=== PATIENT | male | born 1940 | race Caucasian/White ===

== ENCOUNTER 2020-04-22 05:28 | Inpatient (IN) | payer MEDICARE, OTHER, SELFPAY ==
[2020-04-22] VITALS (28 sets, daily range): BP systolic 86–165; BP diastolic 41–73; PULSE 73–107; RESP 15–96; TEMP 36.2–37.1; O2SAT 18–100; BMI 43.9
--- NOTE | 2020-04-22 | ECHO_ITS ---
Patient Info Name: Frederick Cassidy Age: 79 years : 1940 Gender: Male Ht: 70 in Wt: 330 lbs BSA: 2.80 m2 HR: 82 bpm BP: 103 / 68 mmHg Heart Rhythm: Atrial Fibrillation Technical Quality: Good Exam Date: 04/22/2020 10:18 AM Exam Location: [facility] Patient Status: Inpatient Admit Date: 04/22/2020 Staff Ordering Physician: Hermes Mc MD African Studies Professor: Antonette Barbour RDCS Attending Provider: Calvin Weaver MD Referring Physician: Jesusita BLANCA; Exam Type: CA echo doppler color flow Study Info Indications R60.9 - Edema, unspecified I48.0 - Paroxysmal atrial fibrillation I48.1 - Persistent atrial fibrillation Complete two-dimensional, color flow and Doppler transthoracic echocardiogram is performed. Summary 1. Complete two-dimensional, color flow and Doppler transthoracic echocardiogram is performed. 2. Left ventricular chamber dimension is normal. 3. Left ventricular systolic function is normal, estimated at 60-65%. 4. The left ventricular diastolic function is normal. 5. E/e' 9 is minimally elevated. 6. Left atrial chamber dimension is moderately enlarged. 7. Right atrial chamber dimension is moderately enlarged. 8. There is mild to moderate mitral valve regurgitation. 9. There is mild to moderate tricuspid valve regurgitation. 10. Moderate pulmonary hypertension, estimated pulmonary arterial systolic pressure is 50 mmHg. 11. Dilated inferior vena cava with <50% collapse upon inspiration consistent with significantly elevated right atrial pressure, 15 mmHg. Left Ventricle E/e' 9 is minimally elevated. Left ventricular chamber dimension is normal. Left ventricular systolic function is normal, estimated at 60-65%. The left ventricular diastolic function is normal. Right Ventricle Right ventricular chamber dimension is normal. Right ventricular systolic function is normal. Left Atria Left atrial chamber dimension is moderately enlarged. Right Atria Right atrial chamber dimension is moderately enlarged. Aortic Valve The aortic valve is trileaflet. There is no aortic valve stenosis. There is no aortic valve regurgitation. Pulmonic Valve There is no pulmonic regurgitation. Mitral Valve There is no mitral valve stenosis. There is mild to moderate mitral valve regurgitation. Tricuspid Valve There is mild to moderate tricuspid valve regurgitation. Moderate pulmonary hypertension, estimated pulmonary arterial systolic pressure is 50 mmHg. Pericardium/Pleural There is no pericardial effusion. Inferior Vena Cava Dilated inferior vena cava with <50% collapse upon inspiration consistent with significantly elevated right atrial pressure, 15 mmHg. Aorta The aortic root size at the sinus of Valsalva is normal. Left Ventricular Outflow Tract Name Value Normal LVOT 2D LVOT Diameter 2.0 cm LVOT Doppler LVOT Peak Gradient 6 mmHg LVOT Mean Gradient 4 mmHg LVOT VTI 33 cm LVOT VTI/AV VTI Ratio 1.0 LVOT Stroke Volume 10
--- NOTE | ~2020-04-22 | XR_ITS ---
EXAMINATION: XR chest 1V portable EXAM DATE: 04/22/2020 20:07 INDICATION: Severe anemia. TECHNIQUE: Portable AP frontal chest x-ray was obtained. Comparison is made to prior examination from 12/26/2019. FINDINGS: There is cardiomegaly and pulmonary vascular congestion. No confluent consolidation, pneumo thorax or pleural effusion suspected. There are mild bony degenerative changes. IMPRESSION: Cardiomegaly, pulmonary vascular congestion. Reviewed, dictated and finalized at location A. [employer] RELATIONS ADVISOR
--- NOTE | ~2020-04-22 | CT_ITS ---
EXAMINATION: CT LE LT wo con DATE: 04/23/2020 09:51 INDICATION: Wound and edema at the left lower limb. TECHNIQUE: Computed tomography (CT) of the left lower limb was performed without intravenous contrast . Automated exposure control and iterative reconstruction technique were employed. The dose-length pr oduct was 1404 mGy-cm. COMPARISON: None FINDINGS: Bone alignment is normal. Severe polyarticular osteoarthritis at the left knee with medial compartmen t predominance and at multiple joints in the midfoot. Moderate-sized left knee joint effusion. No adonis dent osteolysis to suggest osteomyelitis. Scattered enthesophytes and enthesopathic calcifications at the visualized portions of the bilateral feet. There is diffuse subcutaneous edema with stranding throughout the left lower leg. There is marked sof t tissue swelling at the medial left thigh where there is a more confluent region of fluid density alexandre rrounding numerous linear and branching calcifications consistent with multiple vascular callus cases in the subcutaneous tissues likely related to venous stasis. There is overlying skin thickening. No evident localized mass effect on the architecture the subcutaneous tissues to suggest an abscess alth ough sensitivity is decreased by the absence of intravenous contrast. No evident soft tissue gas to r aise concern for necrotizing fasciitis. There extensive atherosclerotic calcifications which are relatively mild along the left common femora l and superficial femoral arteries. Additional atherosclerotic calcifications along the vessels of th e right calf which may be more hemodynamically significant however quantitative determination of degr ee of patency/stenosis is limited by the absence of intravenous contrast in the small size of the ves sels. There is additional subcutaneous edema and soft tissue swelling over the medial side of the lef t ankle the dorsolateral aspect of the hindfoot. Scrotal edema and small bilateral hydroceles. IMPRESSION: 1. Prominent asymmetric soft tissue swelling at the medial aspect of the left thigh with large conflu ent region of subcutaneous edema and/or phlegmonous change which may be related to chronic venous sta sis given the numerous calcified vessels within the region of soft tissue swelling. No evident soft t issue gas to suggest necrotizing fasciitis which is a clinical diagnosis or focal region more suspici ous for abscess. 2. Extensive atherosclerotic ossifications throughout the left lower limb which could be hemodynamica lly significant at the left calf however assessment is limited by lack of intravenous contrast. 3. Severe polyarticular osteoarthritis at the left knee and midfoot. 4. Nonspecific moderate sized left knee joint effusion. Reviewed, dictated and finalized at location A. [employer]IATE IMPRESSION: 1. Prominent asymmetric soft tissue swelling at the medial aspect of the left t high with large confluent region of subcutaneous edema and/or phlegmonous josé e which may be related to chronic venous stasis given the numerous calcified ve ssels within the region of soft tissue swelling. No evident soft tissue gas to suggest necrotizing fasciitis which is a clinical diagnosis or focal region mor e suspicious for abscess. 2. Extensive atherosclerotic ossifications throughout the left lower limb which could be hemodynamically significant at the left calf however assessment is li mited by lack of intravenous contrast. 3. Severe polyarticular osteoarthritis at the left knee and midfoot. 4. Nonspecific moderate sized left knee joint effusion.
--- NOTE | ~2020-04-22 | CT_ITS ---
EXAMINATION: CT abdomen pelvis wo con DATE: 04/23/2020 09:51 INDICATION: Crohn's and edema. TECHNIQUE: Computed tomography (CT) of the abdomen and pelvis was performed without intravenous contr ast. Automated exposure control and iterative reconstruction technique were employed. The dose-length product was 1534.93 mGy-cm. COMPARISON: 12/21/2009 FINDINGS: Small bilateral pleural effusions with dependent passive atelectasis in the bilateral lower lobes. Mi ld pulmonary edema at the lung bases. Cardiomegaly. Coronary artery disease with likely coronary bart ry stenting. No pericardial effusion. Multiple small calcified gallstones layering in the dependent a spect of the gallbladder with no evident gallbladder wall thickening or pericholecystic inflammatory change to suggest acute cholecystitis. Liver, spleen, pancreas and bilateral adrenal glands are sahil l. Moderate bilateral perinephric stranding. There are couple low-attenuation left renal cysts the la rgest measuring 12 mm as well as a 7 mm proteinaceous/hemorrhagic left renal cyst. No urolithiasis or hydronephrosis. There is mild colonic diverticulosis with a sigmoid predominance. There is no adjac ent inflammatory change to suggest diverticulitis. Normal small bowel and appendix. There is calcifie d atherosclerosis of the aorta and many of the other arteries. Small amount of ascites in the abdomen and pelvis. No loculated abscess or free intraperitoneal gas. Urrutia catheter in the decompressed miguel dder. No pathologically enlarged abdominal or pelvic lymphadenopathy. Scattered body wall edema. Sev ere lumbar spondylosis. IMPRESSION: 1. Cholelithiasis. 2. Anasarca with mild pulmonary edema, small bilateral pleural effusions, small amount of ascites and retroperitoneal and body wall edema at the abdomen and pelvis. 3. Cardiomegaly. Reviewed, dictated and finalized at location A. LOADER IMPRESSION: 1. Cholelithiasis. 2. Anasarca with mild pulmonary edema, small bilateral pleural effusions, small amount of ascites and retroperitoneal and body wall edema at the abdomen and p chris. 3. Cardiomegaly.
--- NOTE | 2020-04-22 06:11 | ED.GENADULT ---
HPI - General Adult General Chief complaint: Extremity Injury, Lower Stated complaint: Bleeding Ulcer Time Seen by Provider: 04/22/20 05:30 History of Present Illness HPI narrative: Patient is a 79-year-old male who presents to the ER with a bleeding leg mass. Mass is located to the posterior thigh of the left lower extremity. It is essentially equivalent in size to the thigh. Patient reports it is due to venous insufficiency/poor blood return. Reports he got up to use the restroom this morning and then noticed she left a trail of blood after he sat down on the toilet. It continued to bleed and he called EMS. Upon arrival bleeding is controlled. The patient is not on blood thinners. He denies any known trauma. No redness or additional swelling outside of what is normal for the chronic mass. Has not seen wound care. There is a sizable ulcer to the posterior aspect of the leg of this mass that has multiple deep areas that are impairing color from white to black but no eschar. At the inferior aspect of the ulcer there are 2 areas where it appears the ulcer may have invaded a vein and caused bleeding. There is clot present and no active bleeding. Related Data Allergies Allergy/AdvReac Type Severity Reaction Status Date / Time No Known Allergies Allergy Mild Verified 12/21/09 15:12 Review of Systems Review of Systems: All systems reviewed & are unremarkable except as noted in HPI and below Constitutional: Constitutional: Denies chills, Denies fever(s) and Denies weakness Integumentary/Breasts: Skin/Breast: Denies pruritus and Denies erythema Comments: Chronic left lower extremity ulcer with bleeding. Neurologic: Denies focal weakness and Denies numbness PMFSH Past Medical History Medical History (Updated 04/22/20 @ 06:48 by Margarito Pichardo MD) Atrial fibrillation Diabetes Hypertension Skin cancer Venous stasis Surgical History Surgical History (Updated 04/22/20 @ 06:19 by Margarito Pichardo MD) H/O hernia repair Social History Social History (Updated 04/22/20 @ 06:19 by Margarito Pichardo MD) Smoking status: Never smoker Exam Narrative: Exam Narrative: GENERAL: Chronically ill-appearing, morbidly obese, and in no acute distress. HEAD: Normocephalic, atraumatic. ENT: Mucous membranes moist. CHEST: Clear to auscultation. No respiratory distress. HEART: Irregular regular rate and rhythm. Normal peripheral pulses. ABDOMEN: Soft, nontender, nondistended. Edema of the lower abdomen. EXTREMITIES: Chronic venous stasis of bilateral lower extremities. Large mass posterior left thigh with a central ulceration that is nondraining. Unstageable at this time. Inferior aspect has 2 areas with stigmata of bleeding but no active hemorrhage. Normal strength range of motion of the upper extremities. Limited range of motion due to mass left lower extremity. Pulses dopplered in bilateral lower extremities. SKIN: Warm, dry, no rash. Slight erythema surrounding the ulceration. NEURO: Alert and oriented x3. PSYCH: Normal mood and affect. Course Course Emergency Course: Admit to hospitalist service. Blood ordered for transfusion. Patient keenly alert and oriented but blood sugar low so he was given IV D50. Will send to [facility] telemetry. General surgery consulted for possible debridement. Vital Signs Vital signs: Vital Signs Temperature 97.5 F L 04/22/20 05:28 Pulse Rate 107 H 04/22/20 05:28 Respiratory Rate 16 04/22/20 05:28 Blood Pressure 119/55 L 04/22/20 05:28 Pulse Oximetry 100 04/22/20 05:28 Temperature 97.5 F L 04/22/20 05:28 Pulse Rate 92 04/22/20 06:42 Respiratory Rate 22 H 04/22/20 06:42 Blood Pressure 165/73 H 04/22/20 06:42 Pulse Oximetry 100 04/22/20 06:42 Medical Decision Making Vital Signs Vital Signs: Vital Signs Temperature 97.5 F L 04/22/20 05:28 Pulse Rate 107 H 04/22/20 05:28 Respiratory Rate 16 04/22/20 05:28 Blood Pressure 119/55 L 04/22/20
[2020-04-22 06:16] LABS: Basophils Percent Auto 0.2 % (0.2-1.2); Eosinophils Absolute Auto 0.3 K/mm3 (0-0.3); Eosinophils Percent Auto 1.4 % (0-4.4); Immature Granulocyte Absolute 0.31 K/mm3 (0.00-0.031); Immature Granulocyte Percent A 1.8 % (0-0.5); Lymphocytes Absolute Auto 1.65 K/mm3 (0.9-3.2); Lymphocytes Percent Auto 9.4 % (18.3-44.2); Mean Corpuscular HGB Conc 30.9 g/dl (32-36); Mean Corpuscular Hemoglobin 22.9 pg (26-34); Mean Corpuscular Volume 74.3 fl (80-100); Mean Platelet Volume 8.4 fl (7.4-10.4); Monocytes Absolute Auto 1.4 K/mm3 (0.1-0.6); Monocytes Percent Auto 8.2 % (2.6-8.5); Neutrophils Absolute Auto 13.9 K/mm3 (1.3-6.7); Platelet Count Result 441 k/mm3 (150-375); Red Blood Count 2.53 M/mm3 (4.6-6.20); Red Cell Distribution Width 18.1 % (11.5-14.5); White Blood Count 17.6 K/mm3 (4.5-10.0)
[2020-04-22 06:17] LABS: Hematocrit 18.8 % (42.0-52.0); Hemoglobin 5.8 g/dL (14.0-18.0)
[2020-04-22 06:33] LABS: Anion Gap 6 mmol/L (8-16); Blood Urea Nitrogen 43 mg/dL (9-20); Calcium 8.4 mg/dL (8.4-10.2); Carbon Dioxide 24 mmol/L (22-30); Chloride 107 mmol/L (98-107); Estimated CRCL calculation 62 ml/min; Estimated Glomerular Filt Rate 53; Glucose 58 mg/dL (75-110); Potassium 4.5 mmol/L (3.4-5.0); Sodium 137 mmol/L (137-145)
[2020-04-22 06:38] LABS: Glucose Point of Care 62 (65-105)
[2020-04-22] MEDS: DEXTROSE 50% 25 GM/50 ML SYRINGE IV PUSH (06:42)
[2020-04-22] MEDS: MORPHINE SULFATE (*CRX) 4 MG/ML INJ IV PUSH ×2 (07:10→15:53)
--- NOTE | 2020-04-22 07:10 | PC.NURSE ---
Report received [facility]. Preparing to admit. Pt resting on stretcher, states his pain is getting better to his right hip. Glucose 98mg/dl. Note dried blood to feet, emanuel wrap intact to left calf. Note large, reddened, warm, excoriated area to left inner thigh; pt reports bleeding wound to left posterior thigh. Pt rolled with assist, note large area (approx 6x7 in) of hardened, darkened skin to posterior thigh just above popliteal space. Appears to be draining clear liquid; however note emanuel wrap near the area that the patient states was on his thigh previously, and this emanuel has dried blood on it as well. NS guaze placed to area. Pt tolerated procedure well.
--- NOTE | 2020-04-22 07:50 | ADMGEN ---
This patient, Frederick Cassidy, was admitted to Medical Room 254-01. Patient/family oriented to hospital policies and general routines including ID bracelet, bed and alarms, visiting hours, pain management, procedures, bathroom and other care routines, personal items, smoking policy, room service/diet, and visiting hours. Placed on telemetry per MD orders. Information on how to activate the Rapid Response Team has been discussed. Patient/Family are encouraged to report perceived risks to care and to ask questions if they do not understand what they are told or what they should do.
--- NOTE | 2020-04-22 08:14 | PM.IMHP ---
H&P: HPI History of Present Illness Date/Time: 04/22/20 08:14 Chief Complaint: Bleeding leg ulcer. Narrative: Frederick Cassidy is a 79 year old male with PMHx significant for Morbid obesity, venous stasis, T2DM, HTN, BPH, former smoker. Patient presented to ED due to bleeding form his leg, patient has chronic wound ulcer on his LLE above the ankle, and mass on the L thigh. Patient presented to ED due to the bleeding not stopping. Patient denies any weight loss, any blood per rectum, hematemesis, hematochezia, melena. No fevers, no rigors, no chills, no n/v/abdominal pain, no sob, no cough, no sputum production, no pnd, no orthopnea. Patient was found to have a hemoglobin of 5 on preliminary work up and a mass on his thigh which he states it has been there for years . Patient does his own wound care. Review of Systems Review of Systems: Narrative: Unable to get a thorough review of systems as patient is hard of hearing and a poor historian. Constitutional: Comments: No fevers, no chills, no rigors, no weight loss. Cardiovascular: Comments: no chest pain. Respiratory: Comments: no sob, no cough, no sputum production. Gastrointestinal: Comments: no n/v/abdominal pain. Musculoskeletal: Comments: Bleeding ulcer LLE, mass L thigh. Integumentary/Breasts: Comments: B/L LE skin changes Neurologic: Comments: no focal weakness. [facility] Past Medical History Medical History Atrial fibrillation Diabetes Hypertension Skin cancer Venous stasis Surgical History Surgical History H/O hernia repair Social History Social History Smoking packs per day: 1.5 Smoking cigarettes per day: 30.0 Smoking status: Former smoker Tobacco type: cigarettes Alcohol intake: former Substance use: never Gender identity (if verbalized by the patient): Male Sexual Orientation (if Verbalized by the Patient): Straight or Heterosexual Spiritual care concerns: No Meds Home Medications and Allergies Home Medications Medication Instructions Recorded Confirmed Type aspirin 81 mg PO HS 04/22/20 04/22/20 History doxazosin 4 mg PO DAILY 04/22/20 04/22/20 History finasteride 5 mg PO DAILY 04/22/20 04/22/20 History furosemide 40 mg PO DAILY 04/22/20 04/22/20 History insulin NPH isoph U-100 human 25 unit SUBCUT Q12H 04/22/20 04/22/20 History [Novolin N Flexpen] insulin regular human [Novolin R 25 unit SUBCUT DAILY 04/22/20 04/22/20 History Flexpen] lisinopril-hydrochlorothiazide 1 tablet PO DAILY 04/22/20 04/22/20 History metformin 2,000 mg PO HS 04/22/20 04/22/20 History multivitamin [Daily Multivitamin] 1 tablet PO DAILY 04/22/20 04/22/20 History potassium chloride 10 meq PO DAILY 04/22/20 04/22/20 History vitamin B complex [Super B Complex] 1 tablet PO DAILY 04/22/20 04/22/20 History Allergies Allergy/AdvReac Type Severity Reaction Status Date / Time No Known Allergies Allergy Mild Verified 04/22/20 12:26 Vital Signs Vital Signs - 24 hr 04/22/20 05:28 04/22/20 06:32 04/22/20 06:42 Temperature 97.5 F L Pulse Rate 107 H 96 92 Respiratory Rate 16 15 22 H Blood Pressure 119/55 L 165/73 H 165/73 H Pulse Oximetry 100 98 100 04/22/20 06:45 04/22/20 07:00 04/22/20 07:01 Temperature Pulse Rate 92 90 90 Respiratory Rate 18 16 17 Blood Pressure 103/68 Pulse Oximetry 99 100 99 04/22/20 07:15 04/22/20 07:30 Temperature Pulse Rate 83 91 Respiratory Rate 16 19 Blood Pressure Pulse Oximetry 100 99 Exam Narrative: Exam Narrative: Chronically ill looking in bed no acute distress. Const: General: comfortable, no acute distress, alert and awake Nutritional Appearance: other (Morbid obesity.) Orientation/consciousness: patient oriented x3 Limitations: physical limitations HENMT: Head: normal to inspection and normocephalic Ears: other (Conteh
[2020-04-22 08:18] LABS: Glucose Point of Care 98 (65-105)
--- NOTE | 2020-04-22 09:55 | PM.CNGS ---
Assessment and Plan Assessment and plan (1) Leg wound, left: Code(s): S81.802A - Unspecified open wound, left lower leg, initial encounter Status: Acute Assessment and Plan: will get CT of LLE for further eval of wound/mass, no further bleeding noted since admit, will get wound care to see, need compression dressing (2) Cellulitis: Code(s): L03.90 - Cellulitis, unspecified Status: Acute Assessment and Plan: cont abx, await CT for further eval (3) Anemia: Code(s): D64.9 - Anemia, unspecified Status: Acute Assessment and Plan: transfuse PRBC and recheck H/H, no active bleeding noted History of Present Illness Consult details Consult date: 04/22/20 Reason for consult: wound care Requesting physician: Margarito Pichardo MD Narrative: Pt is a 79 y/o M c multiple med issues presenting c bleeding ulcer on L posterior thigh. Pt reports he had had wound/mass of his L thigh for years although he has had no specific treatment. Pt reports he was told this was all due to venous stasis. Pt reports last night he noted significant bleeding from this wound. Pt reports some mild oozing in the past but nothing ever this significant. Pt called EMS and was brought to ED. Upon arrival, it was noted that the bleeding was controlled. Review of Systems Constitutional: Constitutional: Denies anorexia, Reports body ache(s), Denies chills, Reports fatigue, Denies fever(s), Denies headache(s), Reports lethargy, Denies malaise, Denies poor appetite, Reports weakness, Reports weight gain and Denies weight loss Eyes: Eyes: Reports no additional eye complaints ENT: Reports system reviewed and no additional complaints, except as documented Cardiovascular: Cardiovascular: Denies chest pain, Reports pedal edema, Reports edema, Reports leg ulcers, Reports leg edema, Reports dyspnea, Reports dyspnea on exertion and Reports orthopnea Respiratory: Respiratory: Reports dyspnea and Reports dyspnea on exertion Gastrointestinal: Gastrointestinal: Reports no additional gastrointestinal complaints Genitourinary: Genitourinary: Reports no additional male genitourinary complaints Musculoskeletal: Musculoskeletal: Reports myalgias, Reports muscle cramps, Reports muscle weakness, Reports numbness and Reports stiffness Integumentary/Breasts: Skin/Breast: Reports bleeding lesions, Reports swelling, Reports change in pigmentation, Reports non-healing lesions, Reports erythema, Reports skin swelling, Reports skin ulcer, Reports sores and Reports wounds Neurologic: Reports system reviewed and no additional complaints, except as documented Psychiatric: Psychiatric: Reports no additional psychiatric complaints Endocrine: Endocrine: Reports no additional endocrine complaints Hematologic/Lymphatic: Hematologic/Lymphatic: Reports no additional hematologic/lymphatic complaints Allergic/Immunologic: Allergic/Immunologic: Reports no additional allergic/immunologic complaints PMFSH Past Medical History Medical History Atrial fibrillation Diabetes Hypertension Skin cancer Venous stasis Surgical History Surgical History H/O hernia repair Social History Social History Smoking status: Never smoker Comments FH - pt denies any known FH of PVD, skin cancers Meds Home Medications and Allergies Home Medications Medication Instructions Recorded Confirmed Type aspirin 81 mg PO HS 04/22/20 04/22/20 History doxazosin 4 mg PO DAILY 04/22/20 04/22/20 History finasteride 5 mg PO DAILY 04/22/20 04/22/20 History furosemide 40 mg PO DAILY 04/22/20 04/22/20 History insulin NPH isoph U-100 human 25 unit SUBCUT Q12H 04/22/20 04/22/20 History [Novolin N Flexpen] insulin regular human [Novolin R 25 unit SUBCUT DAILY 04/22/20 04/22/20 History Flexpen] l
[2020-04-22 11:02] LABS: Glucose Point of Care 92 (65-105)
[2020-04-22] MEDS: HYDROcodone/acetaminophen (*CRX) 5-325 MG TABLET 1 TAB PO (12:57)
--- NOTE | 2020-04-22 16:16 | WPDINFPN2 ---
Progress Note: A&P Assessment and Plan (1) Cellulitis: Code(s): L03.90 - Cellulitis, unspecified Status: Acute Assessment and Plan: Cellulitis posterior L thigh REC [facility] #1, CT ordered Subjective Date/time seen: 04/22/20 16:16 Objective Data Vital Signs Vital Signs: Vital Signs - 24 hr 04/22/20 05:28 04/22/20 06:32 04/22/20 06:42 Temperature 36.4 C L Pulse Rate 107 H 96 92 Respiratory Rate 16 15 22 H Blood Pressure 119/55 L 165/73 H 165/73 H Pulse Oximetry 100 98 100 04/22/20 06:45 04/22/20 07:00 04/22/20 07:01 Temperature Pulse Rate 92 90 90 Respiratory Rate 18 16 17 Blood Pressure 103/68 Pulse Oximetry 99 100 99 04/22/20 07:15 04/22/20 07:30 04/22/20 08:00 Temperature 36.2 C L Pulse Rate 83 91 77 Respiratory Rate 16 19 18 Blood Pressure 98/54 L Pulse Oximetry 100 99 98 04/22/20 09:58 04/22/20 10:15 04/22/20 11:15 Temperature 36.7 C 36.7 C 36.4 C Pulse Rate 91 90 82 Respiratory Rate 18 18 18 Blood Pressure 99/53 L 103/48 L 88/50 L Pulse Oximetry 100 98 99 04/22/20 12:00 04/22/20 12:15 04/22/20 13:20 Temperature 36.2 C L 36.8 C 36.7 C Pulse Rate 77 85 73 Respiratory Rate 16 18 18 Blood Pressure 101/60 93/46 L 107/51 L Pulse Oximetry 98 98 95 04/22/20 14:16 04/22/20 14:32 Temperature 36.8 C 36.8 C Pulse Rate 92 80 Respiratory Rate 18 18 Blood Pressure 92/42 L 95/43 L Pulse Oximetry 99 98 Intake/Output Intake/Output: Intake & Output 04/19/20 04/20/20 04/21/20 04/22/20 23:59 23:59 23:59 23:59 Intake Total 1760 Balance 1760 Meds/Results Medications: Active Medications Generic Name Dose Route Start Last Admin Trade Name Freq PRN Reason Stop Dose Admin Acetaminophen 650 mg 01/08/21 06:44 Acetaminophen 325 Mg Tablet PO Q4H PRN Mild Pain (1-3) or Fever Hydrocodone Bitart/Acetaminophen 1 tab 04/22/20 06:44 04/22/20 12:57 Hydrocodone/Acetaminophen (*Crx) 5-325 Mg Tablet PO 1 tab Q4H PRN Administration Pain Rated 4-6 Aspirin 81 mg 04/22/20 21:00 Aspirin 81 Mg Enteric Tablet PO 05/22/20 21:01 HS [facility] Doxazosin Mesylate 4 mg 04/23/20 09:00 Doxazosin Mesylate 4 Mg Tablet PO DAILY [facility] Finasteride 5 mg 04/23/20 09:00 Finasteride 5 Mg Tablet PO DAILY [facility] Furosemide 20 mg 04/22/20 17:00 Furosemide Inj 40 Mg/4 Ml Vial IV PUSH Q4HR [facility] Piperacillin/Tazobactam/Dextrose 3.375 gm in 50 mls @ 100 mls/hr 04/22/20 16:15 Zosyn 3.375 Gm/D5w 50ml Pm IVPB Q6H [facility] Insulin Human NPH 25 units 04/22/20 21:00 Insulin Human Nph (*Bkc) 100 Units/Ml SUB-Q Q12HR [facility] Insulin Human Regular 25 units 04/23/20 09:00 Insulin Human Regular (*Bkc) 100 Units/Ml SUB-Q 05/23/20 09:01 DAILY [facility] Miconazole Nitrate 1 applic 04/22/20 09:00 Miconazole 2% Antifungal Ointment 56 Gm TOPICAL Q12HR [facility] Morphine Sulfate 4 mg 04/22/20 06:44 04/22/20 15:53 Morphine Sulfate (*Crx) 4 Mg/Ml Inj IV PUSH 4 mg Q2H PRN Administration Pain Rated 7-10 Ondansetron HCl 4 mg 04/22/20 06:44 Ondansetron Inj 4 Mg/2 Ml Vial IV PUSH Q4H PRN Nausea Labs Labs: Laboratory Results - last 24 hr 04/22/20 04/22/20 04/22/20 06:06 06:06 06:35 WBC 17.6 H RBC 2.53 L Hgb 5.8 L* Hct 18.8 L* MCV 74.3 L MCH 22.9 L MCHC 30.9 L RDW 18.1 H Plt Count 441 H MPV 8.4 Immature Gran % (Auto) 1.8 H Neut % (Auto) 79.0 H Lymph % (Auto) 9.4 L Nolan % (Auto) 8.2 Eos % (Auto) 1.4 Baso % (Auto) 0.2 Lymph # (Auto) 1.65 Nolan # (Auto) 1.4 H Eos # (Auto) 0.3 Baso # (Auto) 0.0 Abs Immat Gran (auto) 0.31 H Absolute Neuts (auto) 13.9 H Absolute Nucleated RBC 0.0 Nucleated RBC % 0.0 Sodium 137 Potassium 4.5 Chloride 107 Carbon Dioxide 24 Anion Gap 6 L BUN 43 H Creatinine 1.30 Estim Creat Clear Calc 62 Estimated GFR 53 L Glucose 58 L* POC Cap
[2020-04-22 16:27] LABS: Glucose Point of Care 128 (65-105)
[2020-04-22] MEDS: FUROSEMIDE INJ 40 MG/4 ML VIAL 20 MG IV PUSH (17:44)
[2020-04-22 18:59] LABS: Hematocrit 19.5 % (42.0-52.0)
[2020-04-22 19:30] LABS: Hemoglobin 5.9 g/dL (14.0-18.0)
--- NOTE | 2020-04-22 19:34 | PC.NURSE ---
Addendum entered by Denise Barros RN 04/22/20 19:34: time of call was 1854 Original Note: call to lab to repeat HH due to result and that pt has received 2 units of blood
[2020-04-22] MEDS: SODIUM CHLORIDE 0.9% IV 250 ML 30 ML IV CONT (20:29)
[2020-04-22 20:45] LABS: Glucose Point of Care 137 (65-105)
--- NOTE | 2020-04-22 21:12 | CONS_ITS ---
DATE OF CONSULTATION: 04/22/2020 REASON FOR CONSULTATION: Cellulitis, left thigh. HISTORY OF PRESENT ILLNESS: A 79-year-old male, who is a fair historian. He reports about 15 years of ulcers over the left distal leg as well as left posterior thigh. He customarily sees Dr. Quiroz, who told him this was ultimately due to venous stasis disease. The patient also saw a plastic surgeon approximately 2 years ago, that record not on the computer system, and attempted to obtain some type of treatment, but was denied for cosmetic reasons. The patient has been on no recent antibiotics. No immunosuppressants. He gets around the house very little, but when he does so, he uses a cane. He spends much of his time in bed or in a chair. He has had no known trauma. He presented to the emergency room this morning when bleeding was noted from the posterior thigh wound, which was unusual. On arrival here, he had a dried clot on the inferior aspect of his left thigh. No active bleeding. No known fever, chills, sweats, leg trauma. No previous leg operations and there is no arterial insufficiency that we are aware. ALLERGIES: NONE KNOWN. HABITS: No tobacco. No alcohol. PRESENT MEDICATIONS: Home medication list reviewed. PAST MEDICAL HISTORY: Hernia repair, hypertension, diabetes, and AF. REVIEW OF SYSTEMS: Hypoglycemia, edema, and generalized weakness. 14-point review otherwise negative. FAMILY HISTORY: Not pertinent to his present illness. SOCIAL HISTORY: He lives locally. He is single and retired. PHYSICAL EXAMINATION: GENERAL: This is an elderly male, who appears actual age. No acute distress. VITAL SIGNS: Afebrile, pulse 80, respirations 18, and saturation 98% room air. He is presently getting packed red blood cell transfusion. SKIN: No generalized rashes. EENT: Conjunctivae clear. The oropharynx, oral mucosa normal. Teeth in fair repair. Multiple missing teeth. NECK: No masses, thyromegaly, or meningismus. LUNGS: Clear to auscultation. CARDIAC: Soft S1, S2. Regular rate and rhythm. No murmurs. ABDOMEN: Massively obese. No tenderness is apparent. No masses are apparent. EXTREMITIES: He has very large thighs and comparatively smaller calves. He has a venous stasis ulcer approximately 2 cm over the distal left kumar. It is a 6-7 cm partial-thickness ulcer on posterior left thigh with some eschar and some micro pustules, mild surrounding erythema, particularly medially. There is no crepitus. LABORATORY DATA: Blood cultures had been drawn some 8 hours ago. White count 17.6, hemoglobin 5.8, hematocrit 18.8, MCV 74.3, and platelets are 441. Differential is unremarkable. Chemistry panel normal except for glucose of 50 in the field, now 98. His BUN 43, creatinine 1.3. No prior CBCs are available. RADIOLOGY DATA: Echocardiogram apparently done for edema. Multiple abnormalities, no suspicion for infection. ASSESSMENT: 1. Left thigh ulcer with cellulitis without known trauma, but could be related to a decubitus change. This could be polymicrobial, skin source suspected, less likely infection from a distant source with hematogenous spread. 2. Venous stasis ulcer, distal left leg. No infection. He does have typical hyperpigmentation surrounding the kumar bilaterally. 3. Massive obesity. 4. Diabetes mellitus, appears to be well controlled. 5. Marked anemia of uncertain cause. RECOMMENDATIONS: 1. Evaluation of the anemia in progress. 2. Stop imipenem and vancomycin. Begin piperacillin monotherapy. 3. CT has already been set up. We will follow up on those results and advise. 4. Also follow up on blood cultures. Thank you very much for asking me to see him.
[2020-04-22] MEDS: ACETAMINOPHEN 325 MG TABLET 650 MG PO (23:39)
[2020-04-23] VITALS (21 sets, daily range): BP systolic 87–130; BP diastolic 45–79; PULSE 20–83; RESP 18–99; TEMP 36.3–37.7; O2SAT 81–100
[2020-04-23 05:15] LABS: Hematocrit 21.7 % (42.0-52.0)
[2020-04-23 05:18] LABS: Hemoglobin 6.9 g/dL (14.0-18.0)
[2020-04-23] MEDS: SODIUM CHLORIDE 0.9% IV 250 ML 30 ML IV CONT (06:25)
[2020-04-23 08:05] LABS: Glucose Point of Care 100 (65-105)
[2020-04-23] MEDS: FINASTERIDE 5 MG TABLET PO (10:03)
[2020-04-23] MEDS: INSULIN HUMAN NPH (*BKC) 100 UNITS/ML 25 UNITS SUB-Q (10:18)
--- NOTE | 2020-04-23 11:00 | PM.PNGS ---
Progress Note: A&P Assessment and Plan (1) Leg wound, left: Code(s): S81.802A - Unspecified open wound, left lower leg, initial encounter Status: Acute Assessment and Plan: cont local wound care, elevation/compression, await CT results, abx per ID (2) Cellulitis: Code(s): L03.90 - Cellulitis, unspecified Status: Acute Assessment and Plan: see above (3) Anemia: Code(s): D64.9 - Anemia, unspecified Status: Acute Assessment and Plan: s/p 5 u PRBC, cont serial H/H, not sure source is leg wound given amount of transfused PRBC and slow response, agree c further investigation c CT abd Subjective Subjective Date/Time Seen: 04/23/20 11:00 Pt feels much better, reports no further bleeding from wound Review of Systems Review of Systems: All systems reviewed & are unremarkable except as noted in HPI and below Exam Const: General: cooperative and comfortable Nutritional Appearance: obese Orientation/consciousness: patient oriented x3 Resp: Effort & Inspection: normal respiratory effort Auscultation: clear to auscultation bilaterally Cardio: Jugular venous distension: no JVD Rate: regular rate Rhythm: regular rhythm GI: Inspection: normal to inspection and non-distended GI Palp: Yes Soft to palpation, No Tenderness to palpation present (GI) and No Guarding due to palpation present (GI) Auscultation: normal bowel sounds Skin: Other: bilateral venous stasis ulcers, L thigh mass unchanged, no bleeding Objective Data Vital Signs Vital Signs: Vital Signs - 24 hr 04/22/20 11:15 04/22/20 12:00 04/22/20 12:15 Temperature 36.4 C 36.2 C L 36.8 C Pulse Rate 82 89 85 Respiratory Rate 18 16 18 Blood Pressure 88/50 L 101/60 93/46 L Pulse Oximetry 99 98 98 04/22/20 13:20 04/22/20 14:16 04/22/20 14:32 Temperature 36.7 C 36.8 C 36.8 C Pulse Rate 73 92 80 Respiratory Rate 18 18 18 Blood Pressure 107/51 L 92/42 L 95/43 L Pulse Oximetry 95 99 98 04/22/20 15:32 04/22/20 16:00 04/22/20 16:32 Temperature 36.8 C 36.8 C 36.9 C Pulse Rate 98 83 90 Respiratory Rate 18 18 18 Blood Pressure 90/41 L 90/41 L 98/46 L Pulse Oximetry 98 98 98 04/22/20 17:00 04/22/20 20:00 04/22/20 20:45 Temperature 37.0 C 36.9 C 36.8 C Pulse Rate 88 82 80 Respiratory Rate 18 18 20 Blood Pressure 101/44 L 102/45 L 86/46 L Pulse Oximetry 98 98 97 04/22/20 21:00 04/22/20 22:00 04/22/20 23:00 Temperature 36.8 C 37.1 C 36.8 C Pulse Rate 75 78 82 Respiratory Rate 96 H 20 20 Blood Pressure 90/46 L 105/48 L 97/48 L Pulse Oximetry 18 L 96 97 04/22/20 23:45 04/23/20 00:00 04/23/20 00:35 Temperature 36.9 C 37.4 C Pulse Rate 78 75 82 Respiratory Rate 18 20 Blood Pressure 101/48 L 91/45 L Pulse Oximetry 96 96 04/23/20 00:50 04/23/20 01:50 04/23/20 01:53 Temperature 37.2 C 37.7 C H 37.7 C H Pulse Rate 83 79 79 Respiratory Rate 20 20 20 Blood Pressure 92/45 L 90/48 L 90/48 L Pulse Oximetry 97 96 96 04/23/20 02:50 04/23/20 03:10 04/23/20 04:00 Temperature 37.0 C 37.3 C Pulse Rate 20 L 80 63 Respiratory Rate 99 H 20 Blood Pressure 93/50 L 96/48 L Pulse Oximetry 81 L 99 04/23/20 06:00 04/23/20 06:21 04/23/20 06:35 Temperature 37.1 C 36.5 C 36.7 C Pulse Rate 78 83 63 Respiratory Rate 20 18 20 Blood Pressure 92/50 L 87/51 L 90/49 L Pulse Oximetry 97 98 95 04/23/20 07:35 04/23/20 08:00 04/23/20 08:35 Temperature 36.6 C 36.4 C Pulse Rate 78 77 67 Respiratory Rate 20 20 Blood Pressure 98/46 L 112/46 L Pulse Oximetry 98 96 04/23/20 09:05 Temperature 36.6 C Pulse Rate 80 Respiratory Rate 18 Blood Pressure 102/52 L Pulse Oximetry 98 Intake/Output Intake/Output: Intake & Output 04/20/20 04/21/20 04/22/20 04/23/20 23:59 23:59 23:59 23:59 Intake Total 4390 1350 Output Total 450 1650 Balance 3940 -300 Meds/Results Medications: Active Medications Generic Name Dose Route Start Last Admin Trade Name Freq PRN Reason Stop Dose A
--- NOTE | 2020-04-23 11:41 | WPDGICN ---
Assessment and Plan Assessment and plan (1) Symptomatic anemia: Code(s): D64.9 - Anemia, unspecified Status: Acute Assessment and Plan: he received blood transfusion and still anemic, no overt gib. CT scan was just done to rule out hematoma, etc also noted use of nsaid's we will do egd and colonoscopy this Saturday (2) Cellulitis: Code(s): L03.90 - Cellulitis, unspecified Status: Acute Assessment and Plan: started iv antibiotics, ID on board (3) Leg wound, left: Code(s): S81.802A - Unspecified open wound, left lower leg, initial encounter Status: Acute Assessment and Plan: surgery on board, pending ct scan leg (4) Morbid obesity: Code(s): E66.01 - Morbid (severe) obesity due to excess calories Status: Acute Assessment and Plan: with poor mobility at home (5) Leukocytosis: Code(s): D72.829 - Elevated white blood cell count, unspecified Status: Acute Assessment and Plan: monitor, on antibiotics GI Consult Note Consult date/time: 04/23/20 11:41 Reason for consult: symptomatic anemia HPI: Frederick Cassidy is a 79 year old male with history of morbid obesity, venous stasis, DM, HTN, BPH, former smoker and about 15 years of ulcers over the left distal leg as well as left posterior thigh. He came to ED because of bleeding ulcer on left posterior thigh, at home he hardly gets around and spends lot of time in bed or recliner. He denies any obvious blood per rectum, hematemesis, hematochezia, melena. He is only using baby aspirin but taking nsaid's in daily basis. Never had scopes. Hb was 5.8 wiht microcytosis and required blood transfusion. CT scan leg and abdomen was just done to rule out collection hematoma, abscess, etc. ID started on antibiotics because cellulitis in that area. Review of Systems Constitutional: Constitutional: Denies anorexia, Reports body ache(s), Denies chills, Reports fatigue, Denies fever(s), Denies headache(s), Reports lethargy, Denies malaise, Denies poor appetite, Reports weakness, Reports weight gain and Denies weight loss Eyes: Eyes: Reports no additional eye complaints ENT: Reports system reviewed and no additional complaints, except as documented Cardiovascular: Cardiovascular: Denies chest pain, Reports pedal edema, Reports edema, Reports leg ulcers, Reports leg edema, Reports dyspnea, Reports dyspnea on exertion and Reports orthopnea Respiratory: Respiratory: Reports dyspnea and Reports dyspnea on exertion Gastrointestinal: Gastrointestinal: Reports no additional gastrointestinal complaints Genitourinary: Genitourinary: Reports no additional male genitourinary complaints Musculoskeletal: Musculoskeletal: Reports myalgias, Reports muscle cramps, Reports muscle weakness, Reports numbness and Reports stiffness Integumentary/Breasts: Skin/Breast: Reports bleeding lesions, Reports swelling, Reports change in pigmentation, Reports non-healing lesions, Reports erythema, Reports skin swelling, Reports skin ulcer, Reports sores and Reports wounds Neurologic: Reports system reviewed and no additional complaints, except as documented Psychiatric: Psychiatric: Reports no additional psychiatric complaints Endocrine: Endocrine: Reports no additional endocrine complaints Hematologic/Lymphatic: Hematologic/Lymphatic: Reports no additional hematologic/lymphatic complaints Allergic/Immunologic: Allergic/Immunologic: Reports no additional allergic/immunologic complaints PMFSH Past Medical History Medical History Atrial fibrillation Diabetes Hypertension Skin cancer Venous stasis Surgical History Surgical History H/O hernia repair Social History Social History Smoking packs per day: 1.5 Smoking cigarettes per day: 30.0 Smoking status: Former smoker
[2020-04-23 12:03] LABS: Glucose Point of Care 146 (65-105)
--- NOTE | 2020-04-23 13:22 | PM.IMPN ---
Progress Note: A&P Assessment and Plan (1) Leukocytosis: Code(s): D72.829 - Elevated white blood cell count, unspecified Status: Acute Assessment and Plan: Will trend Source could possibly be LLE wound which has foul smelling discharge Currently on Zosyn Appreciate ID note. (2) Morbid obesity: Code(s): E66.01 - Morbid (severe) obesity due to excess calories Status: Acute Assessment and Plan: Carb consistent diet Life style and diet modifications Not a candidate for Gastric bypass (3) Symptomatic anemia: Code(s): D64.9 - Anemia, unspecified Status: Acute Assessment and Plan: Unclear source GI possible source EGD and colonoscopy planned for Appreciate GI note (4) Leg wound, left: Code(s): S81.802A - Unspecified open wound, left lower leg, initial encounter Status: Acute Assessment and Plan: Wound care consulted. Local care (5) Cellulitis: Code(s): L03.90 - Cellulitis, unspecified Status: Acute Assessment and Plan: Continue present management (6) Anemia: Code(s): D64.9 - Anemia, unspecified Status: Acute Assessment and Plan: Microcytic Hypochromic Suspect slow chronic GI bleed Refractory to multiple transfusions Continue to monitor H&H with serial lab draws. Transfuse as needed (7) Hypoglycemia: Code(s): E16.2 - Hypoglycemia, unspecified Status: Acute Assessment and Plan: Normalized now Holding meds Continue to monitor Subjective Date/time seen: 04/23/20 13:22 I feel fine. Review of Systems Review of Systems: Narrative: Patient presented to ED due to bleeding from leg wound. Constitutional: Comments: no fevers, no rigors, no chills. ENT: Comments: no throat pain. Cardiovascular: Comments: B/L chronic venous stasis. Respiratory: Comments: no sob, no cough, no sputum production. Gastrointestinal: Comments: no hematemesis, no melena, no BRBPR Musculoskeletal: Comments: b/l le SWELLING. Integumentary/Breasts: Comments: Leg wound. Neurologic: Comments: no syncope. Exam Narrative: Exam Narrative: Chronically ill patient, morbidly obese Const: General: comfortable, no acute distress, alert, awake, Physically active and ill appearing Nutritional Appearance: other (Morbid obesity.) HENMT: Head: normocephalic Ears: other (Hard of hearing.) General nose exam: Normal external nose present Face and sinus: normal facial exam Eyes: General: appearance normal, both eyes and all related structures Pupils: Equal, round and reactive pupils present EOM: EOMs intact bilaterally Neck: Neck: no lymphadenopathy, supple and no JVD Resp: Effort & Inspection: normal respiratory effort and able to speak in complete sentences Auscultation: clear to auscultation bilaterally Cardio: Rate: regular rate Rhythm: regular rhythm GI: Inspection: Pannus present GI Palp: Yes Soft to palpation and Yes No hepatosplenomegaly present Skin: Lesions: other (R thigh mass.) Other: B/lL LE chronic skin changes and discoloration, LLE ulcer. Neuro: General: patient oriented x3 and CN's II-XI intact bilaterally Cranial nerves: Yes CN's II-XII intact bilaterally and Yes Equal, round and reactive pupils present Cognition (Neuro): normal cognition Speech: normal speech Gait exam (Neuro): Unable to assess gait Motor exam (neuro): Other motor observations present (No focal deficit.) Extrem: General: other (B/L LE 3+ ) Left lower extremity: hip/thigh (mass medial aspect at around to the posterior aspect.) Details: deformity Objective Data Vital Signs Vital Signs: Vital Signs - 24 hr 04/22/20 14:16 04/22/20 14:32 04/22/20 15:32 Temperature 98.2 F 98.3 F 98.3 F Pulse Rate 92 80 98 Respiratory Rate 18 18 18 Blood Pressure 92/42 L 95/43 L 90/41 L Pulse Oximetry 99 98 98 04/22/20 16:00 04/22/20 16:32 04/22/20 17:00 Temperature 98.3 F 98.4 F 98.6 F Pulse Rate 83 90 88 Respira
[2020-04-23 13:40] LABS: Hematocrit 24.6 % (42.0-52.0); Hemoglobin 7.8 g/dL (14.0-18.0)
[2020-04-23 14:23] LABS: Anion Gap 2 mmol/L (8-16); Blood Urea Nitrogen 30 mg/dL (9-20); Carbon Dioxide 28 mmol/L (22-30); Chloride 105 mmol/L (98-107); Estimated CRCL calculation 71 ml/min; Estimated Glomerular Filt Rate > 60; Glucose 109 mg/dL (75-110); Magnesium 2.3 mg/dL (1.6-2.3); Phosphorus 3.5 mg/dL (2.5-4.5); Potassium 4.2 mmol/L (3.4-5.0); Sodium 135 mmol/L (137-145)
[2020-04-23 14:26] LABS: Basophils Absolute Auto 0.1 K/mm3 (0.0-0.1); Basophils Percent Auto 0.5 % (0.2-1.2); Eosinophils Absolute Auto 0.3 K/mm3 (0-0.3); Hematocrit 24.7 % (42.0-52.0); Hemoglobin 7.8 g/dL (14.0-18.0); Immature Granulocyte Percent A 1.4 % (0-0.5); Lymphocytes Absolute Auto 1.61 K/mm3 (0.9-3.2); Mean Corpuscular HGB Conc 31.6 g/dl (32-36); Mean Corpuscular Hemoglobin 24.7 pg (26-34); Mean Corpuscular Volume 78.2 fl (80-100); Mean Platelet Volume 8.8 fl (7.4-10.4); Monocytes Absolute Auto 1.2 K/mm3 (0.1-0.6); Monocytes Percent Auto 8.1 % (2.6-8.5); Neutrophils Absolute Auto 11.3 K/mm3 (1.3-6.7); Platelet Count Result 388 k/mm3 (150-375); Red Blood Count 3.16 M/mm3 (4.6-6.20); Red Cell Distribution Width 18.7 % (11.5-14.5); White Blood Count 14.6 K/mm3 (4.5-10.0)
[2020-04-23] MEDS: INSULIN HUMAN REGULAR (*BKC) 100 UNITS/ML 22 UNITS SUB-Q (17:09)
[2020-04-23 19:07] LABS: Hematocrit 25.7 % (42.0-52.0); Hemoglobin 8.2 g/dL (14.0-18.0)
[2020-04-23 19:22] LABS: Glucose Point of Care 117 (65-105)
[2020-04-23 20:48] LABS: Glucose Point of Care 115 (65-105)
[2020-04-24] VITALS (12 sets, daily range): BP systolic 102–124; BP diastolic 53–66; PULSE 74–89; RESP 20; TEMP 36.2–36.8; O2SAT 96–100; BMI 10.0
[2020-04-24] MEDS: ACETAMINOPHEN 325 MG TABLET 650 MG PO (05:04)
[2020-04-24 07:40] LABS: Glucose Point of Care 88 (65-105)
[2020-04-24 08:26] LABS: Basophils Absolute Auto 0.1 K/mm3 (0.0-0.1); Basophils Percent Auto 0.4 % (0.2-1.2); Eosinophils Absolute Auto 0.2 K/mm3 (0-0.3); Eosinophils Percent Auto 1.5 % (0-4.4); Hematocrit 25.5 % (42.0-52.0); Immature Granulocyte Absolute 0.23 K/mm3 (0.00-0.031); Immature Granulocyte Percent A 1.5 % (0-0.5); Lymphocytes Absolute Auto 1.83 K/mm3 (0.9-3.2); Lymphocytes Percent Auto 12.1 % (18.3-44.2); Mean Corpuscular HGB Conc 31.4 g/dl (32-36); Mean Corpuscular Hemoglobin 24.2 pg (26-34); Mean Corpuscular Volume 77.3 fl (80-100); Mean Platelet Volume 8.6 fl (7.4-10.4); Monocytes Absolute Auto 1.4 K/mm3 (0.1-0.6); Monocytes Percent Auto 8.9 % (2.6-8.5); Neutrophils Absolute Auto 11.5 K/mm3 (1.3-6.7); Neutrophils Percent Auto 75.6 % (45.5-73.1); Platelet Count Result 424 k/mm3 (150-375); Red Cell Distribution Width 19.2 % (11.5-14.5); White Blood Count 15.1 K/mm3 (4.5-10.0)
[2020-04-24] MEDS: FINASTERIDE 5 MG TABLET PO (08:26)
[2020-04-24] MEDS: INSULIN HUMAN NPH (*BKC) 100 UNITS/ML 25 UNITS SUB-Q (08:28)
[2020-04-24 08:44] LABS: Anion Gap 3 mmol/L (8-16); Blood Urea Nitrogen 19 mg/dL (9-20); Calcium 8.5 mg/dL (8.4-10.2); Carbon Dioxide 27 mmol/L (22-30); Chloride 105 mmol/L (98-107); Estimated CRCL calculation 96 ml/min; Estimated Glomerular Filt Rate > 60; Glucose 98 mg/dL (75-110); Potassium 4.1 mmol/L (3.4-5.0); Sodium 135 mmol/L (137-145)
--- NOTE | 2020-04-24 11:20 | PM.PNGS ---
Progress Note: A&P Assessment and Plan (1) Leg wound, left: Code(s): S81.802A - Unspecified open wound, left lower leg, initial encounter Status: Acute Assessment and Plan: will d/w wound care tomorrow best plan for compression/wound care, cont abx for now, no drainable fluid collections (2) Symptomatic anemia: Code(s): D64.9 - Anemia, unspecified Status: Acute Assessment and Plan: EGD and colonoscopy in am per GI, no obvious source noted Subjective Subjective Date/Time Seen: 04/24/20 11:20 no acute issues overnight, no further bleeding noted from LE wound Review of Systems Review of Systems: All systems reviewed & are unremarkable except as noted in HPI and below Exam Const: General: cooperative and no acute distress Nutritional Appearance: obese Orientation/consciousness: patient oriented x3 Resp: Effort & Inspection: normal respiratory effort Auscultation: diminished lung sounds Cardio: Rate: regular rate Rhythm: regular rhythm GI: Inspection: normal to inspection GI Palp: Yes Soft to palpation, No Tenderness to palpation present (GI) and No Guarding due to palpation present (GI) Skin: Other: L post thigh mass - no bleeding, unchanged Objective Data Vital Signs Vital Signs: Vital Signs - 24 hr 04/23/20 12:00 04/23/20 14:00 04/23/20 16:00 Temperature 36.6 C Pulse Rate 75 62 65 Respiratory Rate 20 Blood Pressure 124/79 Pulse Oximetry 99 04/23/20 18:00 04/23/20 20:00 04/23/20 21:31 Temperature 36.3 C L 36.4 C Pulse Rate 81 79 70 Respiratory Rate 22 H 20 Blood Pressure 126/64 130/67 Pulse Oximetry 98 100 04/24/20 00:00 04/24/20 02:00 04/24/20 04:00 Temperature 36.8 C Pulse Rate 85 81 74 Respiratory Rate 20 Blood Pressure 117/60 Pulse Oximetry 97 04/24/20 06:39 04/24/20 08:00 Temperature 36.4 C L Pulse Rate 87 89 Respiratory Rate 20 Blood Pressure 124/53 L Pulse Oximetry 97 Intake/Output Intake/Output: Intake & Output 04/21/20 04/22/20 04/23/20 04/24/20 23:59 23:59 23:59 23:59 Intake Total 4390 2140 400 Output Total 450 2650 1000 Balance 8566 -048 -506 Meds/Results Medications: Active Medications Generic Name Dose Route Start Last Admin Trade Name Freq PRN Reason Stop Dose Admin Acetaminophen 650 mg 04/22/20 06:44 04/24/20 05:04 Acetaminophen 325 Mg Tablet PO 650 mg Q4H PRN Administration Mild Pain (1-3) or Fever Dextrose 12.5 gm 04/23/20 10:12 Dextrose 50% 25 Gm/50 Ml Syringe IV PUSH PRN PRN Hypoglycemia Protocol Doxazosin Mesylate 4 mg 04/23/20 09:00 04/24/20 07:37 Doxazosin Mesylate 4 Mg Tablet PO Not Given DAILY BISHOP Finasteride 5 mg 04/23/20 09:00 04/24/20 08:26 Finasteride 5 Mg Tablet PO 5 mg DAILY BISHOP Administration Glucagon 1 mg 04/23/20 10:12 Glucagon For Inj 1 Mg Vial IM PRN PRN Hypoglycemia Protocol Glucose 15 gm 04/23/20 10:12 Glucose Oral Gel 15 Gm Of Glucse In 37.5 Gm Tube PO PRN PRN Hypoglycemia Protocol Piperacillin/Tazobactam/Dextrose 3.375 gm in 50 mls @ 100 mls/hr 04/22/20 18:00 04/24/20 05:32 Zosyn 3.375 Gm/D5w 50ml Pm IVPB Infused Q6H BISHOP Infusion Dextrose 1,000 mls @ 100 mls/hr 04/23/20 10:12 Dextrose 5% 1,000 Ml IVPB PRN PRN Hypoglycemia Protocol Insulin Human NPH 25 units 04/22/20 21:00 04/24/20 08:28 Insulin Human Nph (*Bkc) 100 Units/Ml SUB-Q 25 units Q12HR BISHOP Administration Insulin Human Regular 22 units 04/23/20 17:00 04/23/20 17:09 Insulin Human Regular (*Bkc) 100 Units/Ml SUB-Q 22 units EVENING@1700 BISHOP Administration Miconazole Nitrate 1 applic 04/22/20 09:00 04/24/20 08:30 Miconazole 2% Antifungal Ointment 56 Gm TOPICAL 1 applic Q12HR BISHOP Administration Ondansetron HCl 4 mg 04/22/20 06:44 Ondansetron Inj 4 Mg/2 Ml Vial IV PUSH Q4H PRN Nausea Radiology Results: ITS Impre
--- NOTE | 2020-04-24 12:10 | WPDGIPROGNO ---
Progress Note: A&P Assessment and Plan (1) Symptomatic anemia: Code(s): D64.9 - Anemia, unspecified Status: Acute Assessment and Plan: I had lengthy discussion with patient this morning given symptomatic anemia and fact that got blood transfusion. I was planning to proceed with EGD and colonoscopy to rule out GI blood loss but he refuses, he says that with his comorbidities and age is not interested to find out. I told him that he could have ulcers but also colon cancer but still he wouldn't like to have scopes. If he changes his mind then will call me. CT a/p did not show retroperitoneal hematoma or obvious mass, he has anasarca. (2) Leg wound, left: Code(s): S81.802A - Unspecified open wound, left lower leg, initial encounter Status: Acute Assessment and Plan: by surgery, on antibiotics (3) Cellulitis: Code(s): L03.90 - Cellulitis, unspecified Status: Acute Assessment and Plan: ID on board, also had CT leg (4) Morbid obesity: Code(s): E66.01 - Morbid (severe) obesity due to excess calories Status: Acute Subjective Date/time seen: 04/24/20 12:10 Interval history: denies signs of bleeding, no major changes. Review of Systems Review of Systems: All systems reviewed & are unremarkable except as noted in HPI and below Exam Const: General: cooperative, no acute distress and ill appearing chronically Nutritional Appearance: obese and edematous Orientation/consciousness: patient oriented x3 Limitations: physical limitations HENMT: Head: normal to inspection, normocephalic and atraumatic Ears: hearing grossly abnormal bilaterally General nose exam: Normal external nose present Mouth: Yes Normal oral and palatal mucosa present Eyes: General: appearance normal, both eyes and all related structures Pupils: Equal, round and reactive pupils present Neck: Neck: normal visual inspection, full ROM, no lymphadenopathy and supple Chest: Chest palpation & inspection: normal inspection of the chest Resp: Effort & Inspection: normal respiratory effort Auscultation: diminished lung sounds Cardio: Rate: regular rate Rhythm: regular rhythm GI: Inspection: normal to inspection and non-distended GI Palp: Yes Soft to palpation, No Tenderness to palpation present (GI), No Guarding due to palpation present (GI) and No Rigid due to palpation Auscultation: normal bowel sounds Skin: Lesions: lesion noted Other: bilateral venous stasis ulcers in lower legs, L posterior thigh with overlying erythema, shallow ulceration noted in center Neuro: General: patient oriented x3 Speech: normal speech Psych: Mental Status: mental status grossly normal Objective Data Vital Signs Vital Signs: Vital Signs - 24 hr 04/23/20 14:00 04/23/20 16:00 04/23/20 18:00 Temperature 97.9 F 97.4 F L Pulse Rate 62 65 81 Respiratory Rate 20 22 H Blood Pressure 124/79 126/64 Pulse Oximetry 99 98 04/23/20 20:00 04/23/20 21:31 04/24/20 00:00 Temperature 97.6 F Pulse Rate 79 70 85 Respiratory Rate 20 Blood Pressure 130/67 Pulse Oximetry 100 04/24/20 02:00 04/24/20 04:00 04/24/20 06:39 Temperature 98.3 F 97.5 F L Pulse Rate 81 74 87 Respiratory Rate 20 20 Blood Pressure 117/60 124/53 L Pulse Oximetry 97 97 04/24/20 08:00 Temperature Pulse Rate 89 Respiratory Rate Blood Pressure Pulse Oximetry Intake/Output Intake/Output: Intake & Output 04/21/20 04/22/20 04/23/20 04/24/20 23:59 23:59 23:59 23:59 Intake Total 4390 2140 400 Output Total 450 2650 1000 Balance 1769 -510 600 Meds/Results Medications: Active Medications Generic Name Dose Route Start Last Admin Trade Name Freq PRN Reason Stop Dose Admin Acetaminophen 650 mg 04/22/20 06:44 04/24/20 05:04 Acetaminophen 325 Mg Tablet PO 650 mg Q4H PRN Administration Mild Pain (1-3) or Fever Dextrose 12.5 gm 04/23/20 10:12 Dextrose 50% 25 Gm/50 Ml Syringe IV PUSH
[2020-04-24 12:56] LABS: Glucose Point of Care 136 (65-105)
--- NOTE | 2020-04-24 13:27 | PM.IMPN ---
Progress Note: A&P Assessment and Plan (1) Leukocytosis: Code(s): D72.829 - Elevated white blood cell count, unspecified Status: Acute Assessment and Plan: Slightly elevated On antibiotics Patient with large mass in his medial thigh likely source Patient not a candidate for surgery. (2) Morbid obesity: Code(s): E66.01 - Morbid (severe) obesity due to excess calories Status: Acute Assessment and Plan: Carb consistent diet. (3) Symptomatic anemia: Code(s): D64.9 - Anemia, unspecified Status: Acute Assessment and Plan: Declined EGD and Colonoscopy Transfuse as needed (4) Leg wound, left: Code(s): S81.802A - Unspecified open wound, left lower leg, initial encounter Status: Acute Assessment and Plan: Local care Wound care (5) Cellulitis: Code(s): L03.90 - Cellulitis, unspecified Status: Acute Assessment and Plan: Continue current antibiotics (6) Anemia: Code(s): D64.9 - Anemia, unspecified Status: Acute Assessment and Plan: Microcytic Hypochromic GI bleed? Will discuss hospice with patient in view of above. Subjective Date/time seen: 04/24/20 13:27 Patient states that he feels fine. No issues overnight. Weighing in wether to get EGD and colonoscopy. Review of Systems Review of Systems: Narrative: States that had a good night. Musculoskeletal: Comments: back pain Integumentary/Breasts: Comments: large thigh mass. Hematologic/Lymphatic: Comments: no sights of bleeding. Exam Narrative: Exam Narrative: Lying in bed. Const: General: comfortable, no acute distress, alert, awake and other (Chronically ill looking.) Nutritional Appearance: other (Morbid obesity.) HENMT: Head: normocephalic Ears: other (Some deafness.) General nose exam: Normal external nose present Face and sinus: normal facial exam Eyes: General: appearance normal, both eyes and all related structures Pupils: Equal, round and reactive pupils present EOM: EOMs intact bilaterally Neck: Neck: no lymphadenopathy, supple and no JVD Resp: Effort & Inspection: able to speak in complete sentences Auscultation: clear to auscultation bilaterally Cardio: Jugular venous distension: no JVD Rate: regular rate Rhythm: regular rhythm GI: Inspection: Pannus present GI Palp: Yes Soft to palpation and Yes No hepatosplenomegaly present Skin: Lesions: lesion noted (Medial thigh mass) Wounds: wounds noted (LLE ulcer.) Neuro: General: patient oriented x3 and CN's II-XI intact bilaterally Cranial nerves: Yes CN's II-XII intact bilaterally and Yes Equal, round and reactive pupils present Cognition (Neuro): normal cognition Speech: normal speech Extrem: General: other (B/L LE chronic lymphedema, skin changes.) Objective Data Vital Signs Vital Signs: Vital Signs - 24 hr 04/23/20 14:00 04/23/20 16:00 04/23/20 18:00 Temperature 97.9 F 97.4 F L Pulse Rate 62 65 81 Respiratory Rate 20 22 H Blood Pressure 124/79 126/64 Pulse Oximetry 99 98 04/23/20 20:00 04/23/20 21:31 04/24/20 00:00 Temperature 97.6 F Pulse Rate 79 70 85 Respiratory Rate 20 Blood Pressure 130/67 Pulse Oximetry 100 04/24/20 02:00 04/24/20 04:00 04/24/20 06:39 Temperature 98.3 F 97.5 F L Pulse Rate 81 74 87 Respiratory Rate 20 20 Blood Pressure 117/60 124/53 L Pulse Oximetry 97 97 04/24/20 08:00 04/24/20 12:00 Temperature Pulse Rate 89 77 Respiratory Rate Blood Pressure Pulse Oximetry Intake/Output Intake/Output: Intake & Output 04/21/20 04/22/20 04/23/20 04/24/20 23:59 23:59 23:59 23:59 Intake Total 4390 2140 450 Output Total 450 2650 1000 Balance 7719 -827 -705 Meds/Results Medications: Active Medications Generic Name Dose Route Start Last Admin Trade Name Freq PRN Reason Stop Dose Admin Acetaminophen 650 mg 04/22/20 06:44 04/24/20 05:04 Acetaminophen 325 Mg Tablet PO 650 mg Q
[2020-04-24] MEDS: traMADol HCL (*CRX) 50 MG TABLET PO (13:34)
[2020-04-24] MEDS: INSULIN HUMAN REGULAR (*BKC) 100 UNITS/ML 22 UNITS SUB-Q (17:50)
[2020-04-24 17:51] LABS: Glucose Point of Care 124 (65-105)
[2020-04-24 21:46] LABS: Glucose Point of Care 125 (65-105)
--- NOTE | 2020-04-24 22:12 | PC.NURSE ---
Pt refused insulin NPH due at 21:001 Mariposa Ochoa notified.
[2020-04-25] VITALS (11 sets, daily range): BP systolic 114–150; BP diastolic 56–75; PULSE 72–93; RESP 15–20; TEMP 36.3–36.7; O2SAT 96–99
[2020-04-25] MEDS: traMADol HCL (*CRX) 50 MG TABLET PO ×3 (02:15→23:33)
[2020-04-25 08:27] LABS: Glucose Point of Care 94 (65-105)
[2020-04-25] MEDS: DOXAZOSIN MESYLATE 4 MG TABLET PO (09:04)
[2020-04-25] MEDS: FINASTERIDE 5 MG TABLET PO (09:04)
[2020-04-25 12:30] LABS: Glucose Point of Care 135 (65-105)
--- NOTE | 2020-04-25 12:45 | PM.PNGS ---
Progress Note: A&P Assessment and Plan (1) Leg wound, left: Code(s): S81.802A - Unspecified open wound, left lower leg, initial encounter Status: Acute Assessment and Plan: CT shows no drainable fluid collections. No indication for surgery at this time. The patient needs continued local wound care and compression. Discussed with the blood bank specialist today, and we would recommend referral to [facility] wound care clinic that specializes in compression with lymphedema. They can follow the wound and help with compression of the left lower extremity. Continue local wound care as ordered in the meantime. We will sign off at this point. Please let us know if there are any surgical concerns in the future. (2) Symptomatic anemia: Code(s): D64.9 - Anemia, unspecified Status: Acute Assessment and Plan: GI recommendations noted. Patient refusing EGD/colonoscopy. Additional Plan Discussed patient's plan of care with Dr. Mullins. Subjective Subjective Date/Time Seen: 04/25/20 12:45 Patient reports: no new complaints Interval history: Patient seen this morning while working with PT. No new complaints. Refused EGD/Colonoscopy per GI. 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 Left thigh edema with posterior thigh mass with overlying superficial wound/maceration. No bleeding. Psych: Mental Status: mental status grossly normal Insight: Fair insight present (Psych) Judgement: Fair judgement present (Psych) Objective Data Vital Signs Vital Signs: Vital Signs - 24 hr 04/24/20 15:00 04/24/20 16:00 04/24/20 18:00 Temperature 97.1 F L 97.4 F L Pulse Rate 84 86 79 Respiratory Rate 20 20 Blood Pressure 114/66 102/58 L Pulse Oximetry 99 96 04/24/20 20:00 04/24/20 21:41 04/25/20 00:00 Temperature 98.0 F Pulse Rate 76 82 76 Respiratory Rate 20 Blood Pressure 119/57 L Pulse Oximetry 100 04/25/20 02:00 04/25/20 04:00 04/25/20 06:00 Temperature 97.8 F 97.3 F L Pulse Rate 80 72 75 Respiratory Rate 16 20 Blood Pressure 121/59 L 150/75 H Pulse Oximetry 97 97 04/25/20 09:04 04/25/20 10:00 Temperature 97.6 F Pulse Rate 89 Respiratory Rate 20 15 Blood Pressure 124/69 Pulse Oximetry 96 98 Intake/Output Intake/Output: Intake & Output 04/22/20 04/23/20 04/24/20 04/25/20 23:59 23:59 23:59 23:59 Intake Total 4390 2140 1085 540 Output Total 450 2650 1750 900 Balance 3940 -510 -665 -360 Meds/Results Medications: Active Medications Generic Name Dose Route Start Last Admin Trade Name Freq PRN Reason Stop Dose Admin Acetaminophen 650 mg 04/22/20 06:44 04/24/20 05:04 Acetaminophen 325 Mg Tablet PO 650 mg Q4H PRN Administration Mild Pain (1-3) or Fever Dextrose 12.5 gm 04/23/20 10:12 Dextrose 50% 25 Gm/50 Ml Syringe IV PUSH PRN PRN Hypoglycemia Protocol Doxazosin Mesylate 4 mg 04/23/20 09:00 04/25/20 09:04 Doxazosin Mesylate 4 Mg Tablet PO 4 mg DAILY BISHOP Administration Finasteride 5 mg 04/23/20 09:00 04/25/20 09:04 Finasteride 5 Mg Tablet PO 5 mg DAILY BISHOP Administration Glucagon 1 mg 04/23/20 10:12 Glucagon For Inj 1 Mg Vial IM PRN PRN Hypoglycemia Protocol Glucose 15 gm 04/23/20 10:12 Glucose Oral Gel 15 Gm Of Glucse In 37.5 Gm Tube PO PRN PRN Hypoglycemia Protocol Piperacillin/Tazobactam/Dextrose 3.375 gm in 50 mls @ 100 mls/hr 04/22/20 18:00 04/25/20 12:18 Zosyn 3.375 Gm/D5w 50ml Pm IVPB 100 mls/hr Q6H BISHOP Administration Dextrose 1,000 mls @ 100 mls/hr 04/23/20 10:1
--- NOTE | 2020-04-25 13:30 | WPDGIPROGNO ---
Progress Note: A&P Assessment and Plan (1) Symptomatic anemia: Code(s): D64.9 - Anemia, unspecified Status: Acute Assessment and Plan: Hb at 8 after blood transfusion he still does not want to get scopes if he changes his mind then will let me know (2) Leg wound, left: Code(s): S81.802A - Unspecified open wound, left lower leg, initial encounter Status: Acute Assessment and Plan: by surgery, on antibiotics (3) Cellulitis: Code(s): L03.90 - Cellulitis, unspecified Status: Acute Assessment and Plan: ID on board, also had CT leg (4) Morbid obesity: Code(s): E66.01 - Morbid (severe) obesity due to excess calories Status: Acute Subjective Date/time seen: 04/25/20 13:30 Interval history: no signs of gib. Patient is still refusing to get scopes Review of Systems Review of Systems: All systems reviewed & are unremarkable except as noted in HPI and below Exam Const: General: cooperative, no acute distress and ill appearing chronically Nutritional Appearance: obese and edematous Orientation/consciousness: patient oriented x3 Limitations: physical limitations HENMT: Head: normal to inspection, normocephalic and atraumatic Ears: hearing grossly abnormal bilaterally General nose exam: Normal external nose present Mouth: Yes Normal oral and palatal mucosa present Eyes: General: appearance normal, both eyes and all related structures Pupils: Equal, round and reactive pupils present Neck: Neck: normal visual inspection, full ROM, no lymphadenopathy and supple Chest: Chest palpation & inspection: normal inspection of the chest Resp: Effort & Inspection: normal respiratory effort Auscultation: diminished lung sounds Cardio: Rate: regular rate Rhythm: regular rhythm GI: Inspection: normal to inspection and non-distended GI Palp: Yes Soft to palpation, No Tenderness to palpation present (GI), No Guarding due to palpation present (GI) and No Rigid due to palpation Auscultation: normal bowel sounds Skin: Lesions: lesion noted Other: bilateral venous stasis ulcers in lower legs, L posterior thigh with overlying erythema, shallow ulceration noted in center Neuro: General: patient oriented x3 Speech: normal speech Psych: Mental Status: mental status grossly normal Objective Data Vital Signs Vital Signs: Vital Signs - 24 hr 04/24/20 15:00 04/24/20 16:00 04/24/20 18:00 Temperature 97.1 F L 97.4 F L Pulse Rate 84 86 79 Respiratory Rate 20 20 Blood Pressure 114/66 102/58 L Pulse Oximetry 99 96 04/24/20 20:00 04/24/20 21:41 04/25/20 00:00 Temperature 98.0 F Pulse Rate 76 82 76 Respiratory Rate 20 Blood Pressure 119/57 L Pulse Oximetry 100 04/25/20 02:00 04/25/20 04:00 04/25/20 06:00 Temperature 97.8 F 97.3 F L Pulse Rate 80 72 75 Respiratory Rate 16 20 Blood Pressure 121/59 L 150/75 H Pulse Oximetry 97 97 04/25/20 08:00 04/25/20 09:04 04/25/20 10:00 Temperature 97.6 F Pulse Rate 73 89 Respiratory Rate 20 15 Blood Pressure 124/69 Pulse Oximetry 96 98 04/25/20 12:00 Temperature Pulse Rate 83 Respiratory Rate Blood Pressure Pulse Oximetry Intake/Output Intake/Output: Intake & Output 04/22/20 04/23/20 04/24/20 04/25/20 23:59 23:59 23:59 23:59 Intake Total 4390 2140 1085 540 Output Total 450 2650 1750 900 Balance 3940 -510 -665 -360 Meds/Results Medications: Active Medications Generic Name Dose Route Start Last Admin Trade Name Freq PRN Reason Stop Dose Admin Acetaminophen 650 mg 04/22/20 06:44 04/24/20 05:04 Acetaminophen 325 Mg Tablet PO 650 mg Q4H PRN Administration Mild Pain (1-3) or Fever Dextrose 12.5 gm 04/23/20 10:12 Dextrose 50% 25 Gm/50 Ml Syringe IV PUSH PRN PRN Hypoglycemia Protocol Doxazosin Mesylate 4 mg 04/23/20 09:00 04/25/20 09:04 Doxazosin Mesylate 4 Mg Tablet PO 4 mg DAILY BISHOP Administration Finasteride
--- NOTE | 2020-04-25 14:34 | WPDINFPN2 ---
Progress Note: A&P Assessment and Plan (1) Cellulitis: Code(s): L03.90 - Cellulitis, unspecified Status: Acute Assessment and Plan: 1. Cellulitis posterior L thigh, BCs remain ngsf. 2. Venous stasis ulcer L tibia 3. Obesity REC PipTazo #4, continue at least another 2 days. F/U labs. Subjective Date/time seen: 04/25/20 14:34 Interval history: sleepy but arousable Exam Narrative: Exam Narrative: afebrile Const: General: no acute distress Resp: Effort & Inspection: normal respiratory effort Auscultation: clear to auscultation bilaterally Cardio: Rate: regular rate Rhythm: regular rhythm Heart sounds: no gallops and no murmurs GI: Inspection: non-distended GI Palp: Yes Soft to palpation and No Tenderness to palpation present (GI) Skin: General skin exam: no rashes or lesions noted Extrem: Other: distal kumar ulcer without bleeding or drainage. Less edema and erythema over L thigh, medial and posterior aspects. Objective Data Vital Signs Vital Signs: Vital Signs - 24 hr 04/24/20 15:00 04/24/20 16:00 04/24/20 18:00 Temperature 36.2 C L 36.3 C L Pulse Rate 84 86 79 Respiratory Rate 20 20 Blood Pressure 114/66 102/58 L Pulse Oximetry 99 96 04/24/20 20:00 04/24/20 21:41 04/25/20 00:00 Temperature 36.7 C Pulse Rate 76 82 76 Respiratory Rate 20 Blood Pressure 119/57 L Pulse Oximetry 100 04/25/20 02:00 04/25/20 04:00 04/25/20 06:00 Temperature 36.6 C 36.3 C L Pulse Rate 80 72 75 Respiratory Rate 16 20 Blood Pressure 121/59 L 150/75 H Pulse Oximetry 97 97 04/25/20 08:00 04/25/20 09:04 04/25/20 10:00 Temperature 36.4 C Pulse Rate 73 89 Respiratory Rate 20 15 Blood Pressure 124/69 Pulse Oximetry 96 98 04/25/20 12:00 Temperature Pulse Rate 83 Respiratory Rate Blood Pressure Pulse Oximetry Intake/Output Intake/Output: Intake & Output 04/22/20 04/23/20 04/24/20 04/25/20 23:59 23:59 23:59 23:59 Intake Total 4390 2140 1085 590 Output Total 595 9730 1759 537 Balance 3940 -510 -665 -310 Meds/Results Medications: Active Medications Generic Name Dose Route Start Last Admin Trade Name Freq PRN Reason Stop Dose Admin Acetaminophen 650 mg 04/22/20 06:44 04/24/20 05:04 Acetaminophen 325 Mg Tablet PO 650 mg Q4H PRN Administration Mild Pain (1-3) or Fever Dextrose 12.5 gm 04/23/20 10:12 Dextrose 50% 25 Gm/50 Ml Syringe IV PUSH PRN PRN Hypoglycemia Protocol Doxazosin Mesylate 4 mg 04/23/20 09:00 04/25/20 09:04 Doxazosin Mesylate 4 Mg Tablet PO 4 mg DAILY BISHOP Administration Finasteride 5 mg 04/23/20 09:00 04/25/20 09:04 Finasteride 5 Mg Tablet PO 5 mg DAILY BISHOP Administration Glucagon 1 mg 04/23/20 10:12 Glucagon For Inj 1 Mg Vial IM PRN PRN Hypoglycemia Protocol Glucose 15 gm 04/23/20 10:12 Glucose Oral Gel 15 Gm Of Glucse In 37.5 Gm Tube PO PRN PRN Hypoglycemia Protocol Piperacillin/Tazobactam/Dextrose 3.375 gm in 50 mls @ 100 mls/hr 04/22/20 18:00 04/25/20 12:48 Zosyn 3.375 Gm/D5w 50ml Pm IVPB Infused Q6H BISHOP Infusion Dextrose 1,000 mls @ 100 mls/hr 04/23/20 10:12 Dextrose 5% 1,000 Ml IVPB PRN PRN Hypoglycemia Protocol Insulin Human NPH 25 units 04/22/20 21:00 04/25/20 09:11 Insulin Human Nph (*Bkc) 100 Units/Ml SUB-Q Not Given Q12HR [facility] Insulin Human Regular 22 units 04/23/20 17:00 04/24/20 17:50 Insulin Human Regular (*Bkc) 100 Units/Ml SUB-Q 22 units EVENING@1700 BISHOP Administration Miconazole Nitrate 1 applic 04/22/20 09:00 04/25/20 09:04 Miconazole 2% Antifungal Ointment 56 Gm TOPICAL 1 applic Q12HR BISHOP Administration Ondansetron HCl 4 mg 04/22/20 06:44 Ondansetron Inj 4 Mg/2 Ml Vial IV PUSH Q4H PRN Nausea Tramadol HCl 50 mg 04/24/20 12:26 04/25/20 12:24 Tramadol Hcl (*Crx) 50 Mg Tablet PO 50 mg Q8HR PRN Administration Pain
--- NOTE | 2020-04-25 15:06 | PM.IMPN ---
Progress Note: A&P Assessment and Plan (1) Morbid obesity: Code(s): E66.01 - Morbid (severe) obesity due to excess calories Status: Acute Assessment and Plan: Carb consistent diet. (2) Leukocytosis: Code(s): D72.829 - Elevated white blood cell count, unspecified Status: Acute Assessment and Plan: Persistent Continue current choice of antibiotics Likely to be multifactorial Chronic wounds and mass with cellulitis superimposed (3) Leg wound, left: Code(s): S81.802A - Unspecified open wound, left lower leg, initial encounter Status: Acute Assessment and Plan: Continue local care (4) Cellulitis: Code(s): L03.90 - Cellulitis, unspecified Status: Acute Assessment and Plan: Continue current choice of antibiotics. (5) Mass: Status: Acute Assessment and Plan: Non surgical (6) Acute blood loss anemia: Code(s): D62 - Acute posthemorrhagic anemia Status: Acute Assessment and Plan: Patient has declined EGD and colonoscopy. In view of this will offer hospice/palliative care. Subjective Date/time seen: 04/25/20 15:06 Patient states that he feels fine. Review of Systems Review of Systems: Narrative: L knee pain. Constitutional: Comments: no fevers, no rigors, no chills. Cardiovascular: Comments: LLE ulcer. Respiratory: Comments: no sob, no cough, no sputum production. Gastrointestinal: Comments: no hematemesis, no melena, Musculoskeletal: Comments: L medial mass Exam Narrative: Exam Narrative: Lying in bed. Const: General: comfortable, no acute distress, alert, awake, Physically active and other (Chronically ill appearing.) Nutritional Appearance: other (Morbid obesity.) Orientation/consciousness: patient oriented x3 HENMT: Head: normal to inspection and normocephalic Face and sinus: normal facial exam Eyes: Pupils: Equal, round and reactive pupils present EOM: EOMs intact bilaterally Neck: Neck: no lymphadenopathy, supple and no JVD Resp: Auscultation: clear to auscultation bilaterally Cardio: Jugular venous distension: no JVD Rate: regular rate Rhythm: regular rhythm GI: Inspection: Pannus present GI Palp: Yes Soft to palpation and Yes No hepatosplenomegaly present Skin: Wounds: wounds noted (LLE) Neuro: General: patient oriented x3 and CN's II-XI intact bilaterally Cranial nerves: Yes CN's II-XII intact bilaterally and Yes Equal, round and reactive pupils present Cognition (Neuro): normal cognition Extrem: General: other (Lmedial thigh mass.) Objective Data Vital Signs Vital Signs: Vital Signs - 24 hr 04/24/20 16:00 04/24/20 18:00 04/24/20 20:00 Temperature 97.4 F L Pulse Rate 86 79 76 Respiratory Rate 20 Blood Pressure 102/58 L Pulse Oximetry 96 04/24/20 21:41 04/25/20 00:00 04/25/20 02:00 Temperature 98.0 F 97.8 F Pulse Rate 82 76 80 Respiratory Rate 20 16 Blood Pressure 119/57 L 121/59 L Pulse Oximetry 100 97 04/25/20 04:00 04/25/20 06:00 04/25/20 08:00 Temperature 97.3 F L Pulse Rate 72 75 73 Respiratory Rate 20 Blood Pressure 150/75 H Pulse Oximetry 97 04/25/20 09:04 04/25/20 10:00 04/25/20 12:00 Temperature 97.6 F Pulse Rate 89 83 Respiratory Rate 20 15 Blood Pressure 124/69 Pulse Oximetry 96 98 Intake/Output Intake/Output: Intake & Output 04/22/20 04/23/20 04/24/20 04/25/20 23:59 23:59 23:59 23:59 Intake Total 4390 2140 1085 590 Output Total 450 2650 1750 900 Balance 3940 -510 -665 -310 Meds/Results Medications: Active Medications Generic Name Dose Route Start Last Admin Trade Name Freq PRN Reason Stop Dose Admin Acetaminophen 650 mg 04/22/20 06:44 04/24/20 05:04 Acetaminophen 325 Mg Tablet PO 650 mg Q4H PRN Administration Mild Pain (1-3) or Fever Dextrose 12.5 gm 04/23/20 10:12 Dextrose 50% 25 Gm/50 Ml Syringe IV PUSH PRN PRN Hypoglycemia Protocol Doxaz
[2020-04-25 16:35] LABS: Glucose Point of Care 117 (65-105)
[2020-04-25] MEDS: INSULIN HUMAN REGULAR (*BKC) 100 UNITS/ML 22 UNITS SUB-Q (17:13)
[2020-04-25] MEDS: INSULIN HUMAN NPH (*BKC) 100 UNITS/ML 25 UNITS SUB-Q (21:11)
[2020-04-25 21:18] LABS: Glucose Point of Care 177 (65-105)
[2020-04-26] VITALS (10 sets, daily range): BP systolic 97–126; BP diastolic 46–65; PULSE 82–91; RESP 18–20; TEMP 36.3–37; O2SAT 95–99; BMI 11.0
[2020-04-26] MEDS: ACETAMINOPHEN 325 MG TABLET 650 MG PO (04:02)
[2020-04-26 06:23] LABS: CRP 16.4 mg/dL (<1.0)
[2020-04-26 08:01] LABS: Glucose Point of Care 99 (65-105)
[2020-04-26] MEDS: FINASTERIDE 5 MG TABLET PO (08:26)
[2020-04-26] MEDS: DOXAZOSIN MESYLATE 4 MG TABLET PO (08:26)
[2020-04-26] MEDS: INSULIN HUMAN NPH (*BKC) 100 UNITS/ML 25 UNITS SUB-Q (09:16)
--- NOTE | 2020-04-26 11:59 | WPDINFPN2 ---
Progress Note: A&P Assessment and Plan (1) Cellulitis: Code(s): L03.90 - Cellulitis, unspecified Status: Acute Assessment and Plan: 1. Cellulitis posterior L thigh, BCs remain ngsf. CRP high. Exam shows marked improvement in the infectious complication of the long standing ulcer 2. Venous stasis ulcer L tibia 3. Obesity REC PipTazo #5, stop and place on Augmentin x 5 days more. Local care. Will sign off,thanks. Subjective Date/time seen: 04/26/20 11:59 Interval history: PAIUTE-SHOSHONE as before. No new complaints. No further bleeding Exam Narrative: Exam Narrative: afebrile Const: General: no acute distress Resp: Effort & Inspection: normal respiratory effort Auscultation: clear to auscultation bilaterally Cardio: Rate: regular rate Rhythm: regular rhythm Heart sounds: no murmurs GI: Inspection: non-distended GI Palp: Yes Soft to palpation and No Tenderness to palpation present (GI) Urinary Catheter: Urinary Catheter: patent and draining and urine clear Skin: General skin exam: normal color and no rashes or lesions noted Other: L tibial ulcer shallow and without drainge or redness. L posterior thigh ulcer large, no hemorrhage no pus no necrosis no surrounding necrosis Objective Data Vital Signs Vital Signs: Vital Signs - 24 hr 04/25/20 12:00 04/25/20 16:00 04/25/20 20:00 Temperature 36.5 C Pulse Rate 83 80 93 Respiratory Rate 15 15 Blood Pressure 114/56 L Pulse Oximetry 99 99 04/25/20 22:00 04/26/20 01:24 04/26/20 01:59 Temperature 36.7 C 36.7 C Pulse Rate 87 82 82 Respiratory Rate 20 20 Blood Pressure 114/61 112/62 Pulse Oximetry 96 98 04/26/20 04:00 04/26/20 08:00 04/26/20 10:00 Temperature 36.3 C L 36.6 C Pulse Rate 85 88 85 Respiratory Rate 20 18 Blood Pressure 126/52 L 97/46 L Pulse Oximetry 95 97 Intake/Output Intake/Output: Intake & Output 04/23/20 04/24/20 04/25/20 04/26/20 23:59 23:59 23:59 23:59 Intake Total 2140 1085 1330 440 Output Total 2650 1750 1850 750 Balance -510 -665 -520 -310 Meds/Results Medications: Active Medications Generic Name Dose Route Start Last Admin Trade Name Freq PRN Reason Stop Dose Admin Acetaminophen 650 mg 04/22/20 06:44 04/26/20 04:02 Acetaminophen 325 Mg Tablet PO 650 mg Q4H PRN Administration Mild Pain (1-3) or Fever Dextrose 12.5 gm 04/23/20 10:12 Dextrose 50% 25 Gm/50 Ml Syringe IV PUSH PRN PRN Hypoglycemia Protocol Doxazosin Mesylate 4 mg 04/23/20 09:00 04/26/20 08:26 Doxazosin Mesylate 4 Mg Tablet PO 4 mg DAILY BISHOP Administration Finasteride 5 mg 04/23/20 09:00 04/26/20 08:26 Finasteride 5 Mg Tablet PO 5 mg DAILY BISHOP Administration Glucagon 1 mg 04/23/20 10:12 Glucagon For Inj 1 Mg Vial IM PRN PRN Hypoglycemia Protocol Glucose 15 gm 04/23/20 10:12 Glucose Oral Gel 15 Gm Of Glucse In 37.5 Gm Tube PO PRN PRN Hypoglycemia Protocol Piperacillin/Tazobactam/Dextrose 3.375 gm in 50 mls @ 100 mls/hr 04/22/20 18:00 04/26/20 06:36 Zosyn 3.375 Gm/D5w 50ml Pm IVPB Infused Q6H BISHOP Infusion Dextrose 1,000 mls @ 100 mls/hr 04/23/20 10:12 Dextrose 5% 1,000 Ml IVPB PRN PRN Hypoglycemia Protocol Insulin Human NPH 25 units 04/22/20 21:00 04/26/20 09:16 Insulin Human Nph (*Bkc) 100 Units/Ml SUB-Q 25 units Q12HR BISHOP Administration Insulin Human Regular 22 units 04/23/20 17:00 04/25/20 17:13 Insulin Human Regular (*Bkc) 100 Units/Ml SUB-Q 22 units EVENING@1700 BISHOP Administration Miconazole Nitrate 1 applic 04/22/20 09:00 04/26/20 08:27 Miconazole 2% Antifungal Ointment 56 Gm TOPICAL 1 applic Q12HR BISHOP Administration Ondansetron HCl 4 mg 04/22/20 06:44 Ondansetron Inj 4 Mg/2 Ml Vial IV PUSH Q4H PRN Nausea Tramadol HCl 50 mg 04/24/20 12:26 04/25/20 23:33 Tramadol Hcl (*Crx) 50 Mg Tablet PO 50 mg Q8HR PRN Administration Pa
[2020-04-26 12:54] LABS: Glucose Point of Care 113 (65-105)
[2020-04-26] MEDS: AMOXICILLIN/CLAVULANATE K 500-125 MG TAB 1 TABLET PO ×2 (13:32→21:24)
[2020-04-26 17:42] LABS: Glucose Point of Care 109 (65-105)
--- NOTE | 2020-04-26 17:48 | PM.IMPN ---
Progress Note: A&P Assessment and Plan (1) Morbid obesity: Code(s): E66.01 - Morbid (severe) obesity due to excess calories Status: Acute Assessment and Plan: Carb consistent diet. (2) Leukocytosis: Code(s): D72.829 - Elevated white blood cell count, unspecified Status: Acute Assessment and Plan: Persistent Finish 5 day course of IV Zosyn today and ID recommends following with 5 more days of oral Augmentin Likely to be multifactorial Chronic wounds and mass with cellulitis superimposed (3) Leg wound, left: Code(s): S81.802A - Unspecified open wound, left lower leg, initial encounter Status: Acute Assessment and Plan: Continue local care (4) Cellulitis: Code(s): L03.90 - Cellulitis, unspecified Status: Acute Assessment and Plan: Continue current choice of antibiotics, Zosyn the now transition the p.o. Augmentin. (5) Mass: Status: Acute Assessment and Plan: Non surgical (6) Acute blood loss anemia: Code(s): D62 - Acute posthemorrhagic anemia Status: Acute Assessment and Plan: Patient has declined EGD and colonoscopy. Have not been falling serial hemoglobins due to the fact (7) DVT prophylaxis: Code(s): Z29.9 - Encounter for prophylactic measures, unspecified Status: Acute Assessment and Plan: No pharmacological with recent GI blood loss Subjective Date/time seen: 04/26/20 17:48 Interval history: Date of visit 04/26. 79-year-old morbidly obese hypertensive type 2 diabetic admitted with cellulitis of the left leg and chronic leg wound. Had some GI blood loss which has abated but refused GI evaluation. Presently stable and we are working on placement Exam Narrative: Exam Narrative: Blood pressure 122/60 pulse is 90 sat 99% on room air afebrile Lungs clear CV regular rate rhythm Abdomen is soft morbidly obese Extremities venous stasis changes an open wound on left leg with masslike effect than left medial thigh Objective Data Vital Signs Vital Signs: Vital Signs - 24 hr 04/25/20 20:00 04/25/20 22:00 04/26/20 01:24 Temperature 36.7 C Pulse Rate 93 87 82 Respiratory Rate 15 20 Blood Pressure 114/61 Pulse Oximetry 99 96 04/26/20 01:59 04/26/20 04:00 04/26/20 08:00 Temperature 36.7 C 36.3 C L Pulse Rate 82 85 88 Respiratory Rate 20 20 Blood Pressure 112/62 126/52 L Pulse Oximetry 98 95 04/26/20 10:00 04/26/20 12:00 04/26/20 14:00 Temperature 36.6 C 37.0 C Pulse Rate 85 88 91 Respiratory Rate 18 19 Blood Pressure 97/46 L 122/59 L Pulse Oximetry 97 99 Intake/Output Intake/Output: Intake & Output 04/23/20 04/24/20 04/25/20 04/26/20 23:59 23:59 23:59 23:59 Intake Total 2140 1085 1330 440 Output Total 2650 1750 1850 750 Balance -510 -665 -520 -310 Meds/Results Medications: Active Medications Generic Name Dose Route Start Last Admin Trade Name Freq PRN Reason Stop Dose Admin Acetaminophen 650 mg 04/22/20 06:44 04/26/20 04:02 Acetaminophen 325 Mg Tablet PO 650 mg Q4H PRN Administration Mild Pain (1-3) or Fever Amoxicillin/Clavulanate Potassium 1 tablet 04/26/20 14:00 04/26/20 13:32 Amoxicillin/Clavulanate K 500-125 Mg Tab PO 05/01/20 06:01 1 tablet Q8HR BISHOP Administration Dextrose 12.5 gm 04/23/20 10:12 Dextrose 50% 25 Gm/50 Ml Syringe IV PUSH PRN PRN Hypoglycemia Protocol Doxazosin Mesylate 4 mg 04/23/20 09:00 04/26/20 08:26 Doxazosin Mesylate 4 Mg Tablet PO 4 mg DAILY BISHOP Administration Finasteride 5 mg 04/23/20 09:00 04/26/20 08:26 Finasteride 5 Mg Tablet PO 5 mg DAILY BISHOP Administration Glucagon 1 mg 04/23/20 10:12 Glucagon For Inj 1 Mg Vial IM PRN PRN Hypoglycemia Protocol Glucose 15 gm 04/23/20 10:12 Glucose Oral Gel 15 Gm Of Glucse In 37.5 Gm Tube PO PRN PRN Hypoglycemia Protocol Dextrose 1,000 mls @ 100 mls/hr 01
[2020-04-26] MEDS: INSULIN HUMAN REGULAR (*BKC) 100 UNITS/ML 22 UNITS SUB-Q (17:59)
[2020-04-26] MEDS: traMADol HCL (*CRX) 50 MG TABLET PO (18:52)
[2020-04-26 22:20] LABS: Glucose Point of Care 126 (65-105)
[2020-04-27] MEDS: ACETAMINOPHEN 325 MG TABLET 650 MG PO (00:26)
[2020-04-27 04:00] VITALS: BP 131/66; PULSE 100; RESP 20; TEMP 36.2; O2SAT 99
[2020-04-27] MEDS: traMADol HCL (*CRX) 50 MG TABLET PO ×3 (05:01→21:49)
[2020-04-27] MEDS: AMOXICILLIN/CLAVULANATE K 500-125 MG TAB 1 TABLET PO ×3 (06:16→21:01)
[2020-04-27 08:00] VITALS: BP 104/50; PULSE 97; RESP 18; TEMP 36.5; O2SAT 96
[2020-04-27] MEDS: FINASTERIDE 5 MG TABLET PO (08:40)
[2020-04-27] MEDS: DOXAZOSIN MESYLATE 4 MG TABLET PO (08:40)
[2020-04-27 09:09] LABS: Glucose Point of Care 82 (65-105)
[2020-04-27] MEDS: INSULIN HUMAN NPH (*BKC) 100 UNITS/ML 20 UNITS SUB-Q ×2 (10:02→20:59)
--- NOTE | 2020-04-27 11:19 | PC.NURSE ---
Dr. Mckinnon aware of sepsis risk. Culture ordered for urine and urinary catheter removed.
[2020-04-27 11:44] LABS: Add Urine Microscopic? YES; Appearance Urine Cloudy (Clear); Bacteria Urine Trace /hpf; Bilirubin Urine Negative (Negative); Blood Urine 2+ (Negative); Calcium Phosphate Crystals Ur Present /hpf; Color Urine Yellow (Yellow); Glucose Urine UA Negative (Negative); Ketones Urine 1+ mg/dL (Negative); Leukocyte Esterase Ur Trace LEU/UL (NEGATIVE); Mucus Urine Heavy /lpf; Nitrate Urine Negative (Negative); Protein Urine 1+ mg/dL (Negative); RBC Urine >75 /hpf (0-2); Squamous Epithelial Cell Urine Rare /hpf (Few)
[2020-04-27 11:55] LABS: Glucose Point of Care 122 (65-105)
[2020-04-27 12:00] VITALS: BP 124/70; PULSE 86; RESP 16; TEMP 36.6; O2SAT 100
[2020-04-27 14:00] VITALS: BMI 10.0
[2020-04-27 16:00] VITALS: BP 127/73; PULSE 75; RESP 18; TEMP 37.1; O2SAT 98
--- NOTE | 2020-04-27 17:01 | PM.IMPN ---
Progress Note: A&P Assessment and Plan (1) Morbid obesity: Code(s): E66.01 - Morbid (severe) obesity due to excess calories Status: Acute Assessment and Plan: Carb consistent diet. (2) Leukocytosis: Code(s): D72.829 - Elevated white blood cell count, unspecified Status: Acute Assessment and Plan: Finished 5 day course of IV Zosyn 04/26 and ID recommends following with 5 more days of oral Augmentin Likely to be multifactorial Chronic wounds and mass with cellulitis superimposed (3) Leg wound, left: Code(s): S81.802A - Unspecified open wound, left lower leg, initial encounter Status: Acute Assessment and Plan: Continue local care (4) Cellulitis: Code(s): L03.90 - Cellulitis, unspecified Status: Acute Assessment and Plan: Continue current choice of antibiotics, Zosyn the now transition the p.o. Augmentin. (5) Mass: Status: Acute Assessment and Plan: Non surgical (6) Acute blood loss anemia: Code(s): D62 - Acute posthemorrhagic anemia Status: Acute Assessment and Plan: Patient has declined EGD and colonoscopy. Have not been falling serial hemoglobins due to the fact (7) DVT prophylaxis: Code(s): Z29.9 - Encounter for prophylactic measures, unspecified Status: Acute Assessment and Plan: No pharmacological with recent GI blood loss (8) Pyuria: Code(s): R82.81 - Pyuria Status: Acute Assessment and Plan: culture obtained, still on antibiotics Subjective Date/time seen: 04/27/20 17:01 Interval history: Date of visit 04/27. 79-year-old morbidly obese hypertensive type 2 diabetic admitted with cellulitis of the left leg and chronic leg wound. Had some GI blood loss which has abated but refused GI evaluation. Presently stable and we are working on placement Exam Narrative: Exam Narrative: Blood pressure 124/70 pulse is 86 sat 100% on room air afebrile Lungs clear CV regular rate rhythm Abdomen is soft morbidly obese Extremities venous stasis changes and open wound on left leg with masslike effect on left medial thigh Neuro alert and oriented Objective Data Vital Signs Vital Signs: Vital Signs - 24 hr 04/26/20 17:30 04/26/20 20:00 04/27/20 04:00 Temperature 36.8 C 36.9 C 36.2 C L Pulse Rate 87 85 100 Respiratory Rate 18 20 20 Blood Pressure 118/62 120/61 131/66 Pulse Oximetry 99 97 99 04/27/20 08:00 04/27/20 12:00 Temperature 36.5 C 36.6 C Pulse Rate 97 86 Respiratory Rate 18 16 Blood Pressure 104/50 L 124/70 Pulse Oximetry 96 100 Intake/Output Intake/Output: Intake & Output 04/24/20 04/25/20 04/26/20 04/27/20 23:59 23:59 23:59 23:59 Intake Total 1085 1330 1180 740 Output Total 1750 1850 1475 450 [facility] -[phone] Meds/Results Medications: Active Medications Generic Name Dose Route Start Last Admin Trade Name Freq PRN Reason Stop Dose Admin Acetaminophen 650 mg 04/22/20 06:44 04/27/20 00:26 Acetaminophen 325 Mg Tablet PO 650 mg Q4H PRN Administration Mild Pain (1-3) or Fever Amoxicillin/Clavulanate Potassium 1 tablet 04/26/20 14:00 04/27/20 13:05 Amoxicillin/Clavulanate K 500-125 Mg Tab PO 05/01/20 06:01 1 tablet Q8HR BISHOP Administration Dextrose 12.5 gm 04/23/20 10:12 Dextrose 50% 25 Gm/50 Ml Syringe IV PUSH PRN PRN Hypoglycemia Protocol Doxazosin Mesylate 4 mg 04/23/20 09:00 04/27/20 08:40 Doxazosin Mesylate 4 Mg Tablet PO 4 mg DAILY BISHOP Administration Finasteride 5 mg 04/23/20 09:00 04/27/20 08:40 Finasteride 5 Mg Tablet PO 5 mg DAILY BISHOP Administration Glucagon 1 mg 04/23/20 10:12 Glucagon For Inj 1 Mg Vial IM PRN PRN Hypoglycemia Protocol Glucose 15 gm 04/23/20 10:12 Glucose Oral Gel 15 Gm Of Glucse In 37.5 Gm Tube PO PRN PRN Hypoglycemia Protocol Dextrose 1,000 mls @ 100 mls/hr 04/23/20 10:12 Dextro
[2020-04-27] MEDS: INSULIN HUMAN REGULAR (*BKC) 100 UNITS/ML 22 UNITS SUB-Q (17:08)
[2020-04-27 17:56] LABS: Glucose Point of Care 103 (65-105)
[2020-04-27 18:18] LABS: SARS-CoV-2 RNA PCR Negative
[2020-04-27 20:00] VITALS: BP 133/66; PULSE 87; RESP 22; TEMP 37.3; O2SAT 98
[2020-04-27 20:40] LABS: Glucose Point of Care 106 (65-105)
[2020-04-28] VITALS: BP 124/75; PULSE 101; RESP 22; TEMP 37.2; O2SAT 94
[2020-04-28 04:00] VITALS: BP 110/58; PULSE 84; RESP 22; TEMP 36.6; O2SAT 98
[2020-04-28] MEDS: AMOXICILLIN/CLAVULANATE K 500-125 MG TAB 1 TABLET PO ×3 (05:50→20:24)
[2020-04-28] MEDS: traMADol HCL (*CRX) 50 MG TABLET PO ×2 (06:13→14:19)
[2020-04-28 08:46] LABS: Glucose Point of Care 82 (65-105)
[2020-04-28] MEDS: DOXAZOSIN MESYLATE 4 MG TABLET PO (09:21)
[2020-04-28] MEDS: FINASTERIDE 5 MG TABLET PO (09:21)
[2020-04-28] MEDS: INSULIN HUMAN NPH (*BKC) 100 UNITS/ML 20 UNITS SUB-Q (09:21)
[2020-04-28 10:00] VITALS: BP 120/58; PULSE 88; RESP 14; TEMP 36.7; O2SAT 98
--- NOTE | 2020-04-28 11:11 | PCNWS ---
Weekly nutritional screen. Patient is tolerating current diet with adequate intake. No weight loss reported. No nutritional needs at this time.
[2020-04-28 11:43] LABS: Glucose Point of Care 95 (65-105)
[2020-04-28 14:00] VITALS: BP 111/67; PULSE 84; RESP 14; TEMP 36.6; O2SAT 97
[2020-04-28 16:51] LABS: Glucose Point of Care 104 (65-105)
[2020-04-28 18:00] VITALS: BP 114/60; PULSE 79; RESP 18; TEMP 36.4; O2SAT 97
[2020-04-28] MEDS: INSULIN HUMAN REGULAR (*BKC) 100 UNITS/ML 22 UNITS SUB-Q (18:02)
[2020-04-28 20:00] VITALS: BP 121/60; PULSE 80; RESP 20; TEMP 36.6; O2SAT 96
--- NOTE | 2020-04-28 20:29 | PCDIET ---
susan sanderson EXERCISE PHYSIOLOGIST CERTIFIED informed of glucose of 105 and NPH insullin 20 units ordered., order to hold tonight
[2020-04-28 20:42] LABS: Glucose Point of Care 105 (65-105)
--- NOTE | 2020-05-01 16:45 | PM.DS ---
DS: Admitting Diagnosis Admitting Diagnosis Admitting Diagnosis: Cellulitis and leukocytosis with anemia DS: Discharge Diagnosis Discharge Diagnosis (1) Morbid obesity: Code(s): E66.01 - Morbid (severe) obesity due to excess calories Status: Acute Assessment and Plan: Carb consistent diet suggested a discharge and while inpatient. (2) Leukocytosis: Code(s): D72.829 - Elevated white blood cell count, unspecified Status: Acute Assessment and Plan: Finished 5 day course of IV Zosyn 04/26 and ID recommends following with 5 more days of oral Augmentin on discharge Likely to be multifactorial Chronic wounds and mass with cellulitis superimposed (3) Leg wound, left: Code(s): S81.802A - Unspecified open wound, left lower leg, initial encounter Status: Acute Assessment and Plan: Continue local care (4) Cellulitis: Code(s): L03.90 - Cellulitis, unspecified Status: Acute Assessment and Plan: Continued, Zosyn for 5 days and transitioned the p.o. Augmentin for 5 more days. (5) Mass: Status: Acute Assessment and Plan: Non surgical left thigh which was chronic (6) Acute blood loss anemia: Code(s): D62 - Acute posthemorrhagic anemia Status: Acute Assessment and Plan: Patient declined EGD and colonoscopy. Did not follow serial hemoglobins due to the fact (7) Pyuria: Code(s): R82.81 - Pyuria Status: Acute Assessment and Plan: Culture was no growth and will continue Augmentin on discharge DS: Summary Hospital Course Hospital Course: 79-year-old hypertensive type 2 diabetic with morbid obesity admitted with cellulitis left leg and what looked to be mass there. He also had GI blood loss and anemia. Treated with IV Zosyn with some improvement in the cellulitis. Id recommended 5 days IV followed by 5 days oral Augmentin. Seen by GI and offered EGD and colonoscopy to evaluate further but patient refused. He will follow-up with his primary care He will resume his usual medications with the addition of the Augmentin 875 b.i.d. for total 10 days treatment Time Spent with Patient Time attestation: Total time spent providing and/or coordinating discharge services: 35 minutes Exam Narrative: Exam Narrative: Condition on discharge 120/60 pulse is 80 saturating 96% on room air afebrile Lungs clear CV regular rate rhythm Abdomen morbidly obese nontender bowel sounds normal active Extremities chronic stasis edema with cellulitic area on the left an open area. Patient was stable to be discharged to rehab facility Discharge Plan Discharge Attending physician on discharge: Jesus Mckinnon Consulting providers: Arnaud Javier Discharging Clinician: eJsus Mckinnon Patient Disposition: SNF Activity: as tolerated Diet: diabetic and low sodium Discharge Instructions: We would recommend referral to [facility] ([place]) wound care specialists who help manage wounds and lymphedema that would be able to provide appropriate compression for the left leg and manage your wound care as an outpatient. Stand Alone Forms: General Discharge Information Follow-up/Referrals: Fer Nails MD [Primary Care Provider] - 3 Weeks Discharge Medications: New acetaminophen [Mapap (acetaminophen)] 325 mg Tablet 650 mg PO Q4H PRN (Reason: Mild Pain (1-3) Or Fever) 30 Days RF: 0 dextrose [Glutose-15] 40 % Gel 15 g PO PRN PRN (Reason: Hypoglycemia) 30 Days RF: 0 Aloe [place] Antifungal (micon) 2 % Ointment 1 applic topical Q12HR 30 Days RF: 0 Novolin N NPH U-100 Insulin 100 unit/mL Suspension 20 units subcut Q12HR 30 Days Qty: 12 RF: 0 amoxicillin-pot clavulanate [Augmentin] 500-125 mg Tablet 1 tablet PO Q8HR 4 Days Qty: 12 RF: 0 GlucaGen Diagnostic Kit 1 mg/mL Recon Soln 1 mg IM PRN PRN (Reason: Hypoglycemia) 30 Days RF: 0 tramadol 50 mg Tablet 50 mg PO Q8HR PRN
== END 2020-04-28 21:55 | DRG 603 ==
LOC: ANHED 06:48 → ANH2MED 07:07
PROVIDERS: Internal Medicine; Internal Medicine Infectious Disease; Admitting Provider Family Medicine; Emergency Provider Emergency Medicine; PCP Family Medicine Adolescent Medicine; Visit Provider Internal Medicine
DX: L03.116 Cellulitis of left lower limb (principal); L97.129 Non-pressure chronic ulcer of left thigh with unspecified severity; L97.829 Non-pressure chronic ulcer of other part of left lower leg with unspecified severity; Z68.41 Body mass index [BMI] 40.0-44.9, adult; D62 Acute posthemorrhagic anemia; E11.649 Type 2 diabetes mellitus with hypoglycemia without coma; Z20.822 Contact with and (suspected) exposure to COVID-19; I83.028 Varicose veins of left lower extremity with ulcer other part of lower leg; D72.829 Elevated white blood cell count, unspecified; I10 Essential (primary) hypertension; I87.8 Other specified disorders of veins; E66.01 Morbid (severe) obesity due to excess calories; N40.0 Benign prostatic hyperplasia without lower urinary tract symptoms; R82.81 Pyuria; Z87.891 Personal history of nicotine dependence; Z79.4 Long term (current) use of insulin; Z79.82 Long term (current) use of aspirin; Z79.899 Other long term (current) drug therapy; Z85.828 Personal history of other malignant neoplasm of skin
CPT/HCPCS: 36415; 36430; 71045; 73700; 74176; 80048; 81001; 83735; 84100; 85014; 85018; 85025; 86140; 86850; 86900; 86901; 86923; 87040; 87086; 93306; 96365; 96375; 97110; 97163; 97166; 97530; 97535; 99285; A9270; C9803; J1815; J1940; J2270; J2543; J3370; J7050; P9016; U0003; U0005

== ENCOUNTER 2020-09-06 15:44 | Outpatient (NON) | payer MEDICARE, OTHER, SELFPAY ==
[2020-09-06 17:12] LABS: Alanine Aminotransferase 10 U/L (4-50); Albumin Level 3.2 g/dL (3.5-5.1); Alkaline Phosphatase 106 U/L (38-126); Anion Gap 8 mmol/L (8-16); Aspartate Amino Transferase 27 U/L (17-59); Bilirubin,Total 0.4 mg/dL (0.2-1.3); Blood Urea Nitrogen 18 mg/dL (9-20); Calcium 9.4 mg/dL (8.4-10.2); Carbon Dioxide 28 mmol/L (22-30); Chloride 103 mmol/L (98-107); Estimated Glomerular Filt Rate > 60; Glucose 108 mg/dL (75-110); Potassium 3.9 mmol/L (3.4-5.0); Sodium 139 mmol/L (137-145)
[2020-09-06 17:14] LABS: Basophils Absolute Auto 0.1 K/mm3 (0.0-0.1); Basophils Percent Auto 0.7 % (0.2-1.2); Eosinophils Absolute Auto 0.2 K/mm3 (0-0.3); Eosinophils Percent Auto 2.5 % (0-4.4); Hematocrit 29.7 % (42.0-52.0); Hemoglobin 9.1 g/dL (14.0-18.0); Immature Granulocyte Absolute 0.05 K/mm3 (0.00-0.031); Immature Granulocyte Percent A 0.5 % (0-0.5); Lymphocytes Absolute Auto 1.53 K/mm3 (0.9-3.2); Lymphocytes Percent Auto 15.8 % (18.3-44.2); Mean Corpuscular HGB Conc 30.6 g/dl (32-36); Mean Corpuscular Hemoglobin 26.8 pg (26-34); Mean Corpuscular Volume 87.4 fl (80-100); Mean Platelet Volume 9.7 fl (7.4-10.4); Monocytes Absolute Auto 0.9 K/mm3 (0.1-0.6); Monocytes Percent Auto 9.2 % (2.6-8.5); Neutrophils Absolute Auto 6.9 K/mm3 (1.3-6.7); Neutrophils Percent Auto 71.3 % (45.5-73.1); Platelet Count Result 426 k/mm3 (150-375); White Blood Count 9.7 K/mm3 (4.5-10.0)
[2020-09-06 17:15] LABS: Hemoglobin A1C 5.3 % (<5.7)
== END 2020-09-06 15:45 | disposition home or self-care (01) ==
PROVIDERS: PCP Family Medicine Adolescent Medicine; Visit Provider Family Medicine Adolescent Medicine
DX: E11.9 Type 2 diabetes mellitus without complications (principal); D64.9 Anemia, unspecified; I10 Essential (primary) hypertension
CPT/HCPCS: 36415; 80053; 83036; 85025

== ENCOUNTER 2020-11-01 12:04 | Outpatient (NON) | payer MEDICARE, OTHER, SELFPAY ==
[2020-11-01 12:34] LABS: Hematocrit 28.2 % (42.0-52.0); Hemoglobin 8.7 g/dL (14.0-18.0); Mean Corpuscular HGB Conc 30.9 g/dl (32-36); Mean Corpuscular Volume 90.7 fl (80-100); Mean Platelet Volume 9.3 fl (7.4-10.4); Platelet Count Result 408 k/mm3 (150-375); Red Blood Count 3.11 M/mm3 (4.6-6.20); Red Cell Distribution Width 19.8 % (11.5-14.5); White Blood Count 10.6 K/mm3 (4.5-10.0)
[2020-11-01 12:53] LABS: Anion Gap 9 mmol/L (8-16); Blood Urea Nitrogen 23 mg/dL (9-20); Calcium 9.4 mg/dL (8.4-10.2); Carbon Dioxide 28 mmol/L (22-30); Chloride 103 mmol/L (98-107); Estimated Glomerular Filt Rate > 60; Glucose 106 mg/dL (65-110); Potassium 4.3 mmol/L (3.4-5.0); Sodium 140 mmol/L (137-145)
== END 2020-11-01 12:05 | disposition home or self-care (01) ==
PROVIDERS: PCP Family Medicine Adolescent Medicine; Visit Provider Family Medicine Adolescent Medicine
DX: D64.9 Anemia, unspecified (principal); I10 Essential (primary) hypertension
CPT/HCPCS: 36415; 80048; 85027

== ENCOUNTER → 2022-08-31 13:35 | Outpatient (CLI) | payer MEDICARE, OTHER, SELFPAY ==
--- NOTE | ~2022-08-31 | CT_ITS ---
EXAMINATION: CT brain wo/w con DATE: 08/31/2022 14:31 INDICATION: Squamous cell carcinoma. TECHNIQUE: Computed tomography (CT) of the head was performed without and with 100 mL Omnipaque 350 i ntravenous contrast. The mA was adjusted according to patient size. Iterative reconstruction techniqu e was employed. The dose-length product was 1199.14 mGy-cm. COMPARISON: None FINDINGS: There are scattered areas of low attenuation in the cerebral white matter, which is within normal limits for the patient's age. 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 There is no acu te ischemic infarct or intracranial hemorrhage. The ventricles are normal in size. There is mucosal t hickening in the paranasal sinuses. The orbits are normal. The mastoid air cells are normal. In the l eft anterolateral scalp, there is a 8.1 x 7.9 x 2.6 cm mass with full-thickness lysis of the underlyi ng skull. IMPRESSION: 1. 8.1 cm left scalp mass with associated full-thickness lysis of the skull, consistent with primary malignancy. 2. 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 Reviewed, dictated and finalized at location A. IMPRESSION: 1. 8.1 cm left scalp mass with associated full-thickness lysis of the skull, co nsistent with primary malignancy. 2. 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
--- NOTE | ~2022-08-31 | CT_ITS ---
EXAMINATION: CT soft tissue neck w con DATE: 08/31/2022 14:31 INDICATION: Squamous cell carcinoma of the scalp. TECHNIQUE: Computed tomography (CT) of the neck was performed with 100 mL Omnipaque-350 intravenous c ontrast. Automated exposure control and iterative reconstruction technique were employed. The dose-le ngth product was 429.97 mGy-cm. COMPARISON: None FINDINGS: Partially visualized is a left-sided scalp mass with lysis of the underlying skull. There i s skin thickening of the right-sided scalp. There is plaque in the proximal internal carotid arteries with 0% stenosis relative to normal distal artery lumen diameters. There are no pathologically enlar ged lymph nodes. There is mucosal thickening in the paranasal sinuses. The mastoid air cells are norm al. There is severe cervical spondylosis. IMPRESSION: 1. Left-sided scalp mass with skull invasion, consistent with primary malignancy. 2. Skin thickening of the right-sided scalp. Correlate with physical exam. Reviewed, dictated and finalized at location A. IMPRESSION: 1. Left-sided scalp mass with skull invasion, consistent with primary malignanc y. 2. Skin thickening of the right-sided scalp. Correlate with physical exam.
[2022-08-31 14:05] LABS: Estimated Glomerular Filt Rate 58
== END ==
PROVIDERS: PCP Family Medicine Adolescent Medicine
DX: C44.329 Squamous cell carcinoma of skin of other parts of face (principal); L81.4 Other melanin hyperpigmentation; D48.5 Neoplasm of uncertain behavior of skin; L08.89 Other specified local infections of the skin and subcutaneous tissue; R93.0 Abnormal findings on diagnostic imaging of skull and head, not elsewhere classified
CPT/HCPCS: 70470; 70491; Q9967